=== PATIENT | male | born 1960 | race Caucasian/White ===

== ENCOUNTER 2020-04-02 08:47 | Day surgery (SDC) | payer MEDICARE, MEDICAID, SELFPAY ==
[2020-04-02] VITALS (12 sets, daily range): BP systolic 111–153; BP diastolic 54–90; PULSE 56–70; RESP 16–18; TEMP 36.4; O2SAT 94–100; BMI 32.1
--- NOTE | 2020-04-02 | IR_ITS ---
APPROVED REPORT Patient Location: Inpatient Outpatient System Dispatcher: IKER Mart RT (R) PROCEDURES Left heart catheterization Left ventriculogram Selective coronary angiogram Drug-eluting stent deployment to the proximal mid dominant right coronary INDICATION Coronary artery disease, Abnormal Myoview Informed consent was obtained prior to the procedure. COMPLICATIONS none Estimated Blood Loss: less than 10 mls TECHNIQUE One percent lidocaine used to anesthetize the right anterior aspect of the wrist. The right radial artery was accessed via the Seldinger technique. A 6 Japanese sheath was placed in the right radial artery. 2.5 mg of verapamil, 800 mcg of nitroglycerin, 1mg Lidocaine and 5000 U Heparin were given through the arterial sheath. The trap catheter was also used to perform left heart catheterization, left ventriculogram and selective coronary angiogram. At the end of the diagnostic angiogram therapeutic heparin was administered giving a therapeutic ACT. And I Trisha right guide catheter was used to intubate the right coronary artery and a Choice PT extra-support wire was placed distally. A 4 mm x 38 mm resolute alanna stent was deployed at 20 sugey reducing the critical stenosis to 0%. HU II flow was present before the procedure with HU-3 flow at the end of the procedure. At the end the procedure the apparatus was removed the sheath was removed good hemostasis was achieved using TR banding patient was transferred to the postop holding area stable condition ANGIOGRAPHIC RESULTS The left main artery Normal The left anterior descending artery Is proximally normal followed by mid vessel 40% stenosis followed by a stent which is widely patent with minimal in-stent restenosis. First diagonal artery is a large vessel and widely patent The circumflex artery Is a nondominant vessel giving rise to a large obtuse marginal artery which has a stent in the proximal to mid segment which is widely patent with minimal in-stent restenosis The right coronary artery Is a large dominant vessel with proximal 50% stenosis followed by mid vessel complex 90% stenosis. HU II flow was present The ALONZO ventriculogram reveals Normal 65% The left ventricular end-diastolic pressure 10 mmHg IMPRESSION Critical dominant right coronary stenosis Successful stenting the proximal to mid right coronary is moderate and critical disease reduced to 0% with one drug-eluting stent Normal ejection fraction Normal left ventricular end-diastolic pressure PLAN 1. Dual antiplatelet therapy 2. LDL less than 55 3. Risk factor modification 4. Cardiac rehabilitation 5. Avoidance of all tobacco products Electronically signed by : Karson Iglesias, 04/02/2020 12:15:36
--- NOTE | 2020-04-02 09:29 | CA_ITS ---
APPROVED REPORT EXAM: Comprehensive 2D, Doppler, and color-flow Echocardiogram Can Bander Operator: Nancy Holliday RT(R) Ht: 5 ft 5 in Wt: 192lbs BSA: 1.94 BP: 139/86 mmHg Indications: CP, Abn GXT, CAD, HTN, FARIAS, hyperlipidemia 2D Dimensions LVOT 2.21 cm (M/F) 1.5-2.5 M-Mode Dimensions RVDd 2.62 cm (0.9-2.6) LVDd 4.59 cm (3.5-5.7) LVDs 3.49 cm (3.5-5.7) IVSd 1.18 cm (0.6-1.1) PWd 1.06 cm (0.6-1.1) EF (Teich) 47.80% FS 24.00% EDV (Teich) 96.80 mL ESV (Teich) 50.50 mL LV Diastology E/A Ratio 1.11 Mitral Valve MV A Velocity 64.00 (40-130 cm/s) Left Ventricle Left atrium is mildly enlarged, left ventricle is normal size, mild concentric left ventricular hypertrophy, visually estimated ejection fraction 55% with no regional wall motion abnormality. Diastolic parameters are inconclusive. Right Ventricle Right atrium and right ventricular normal size and contractility. Aortic Valve Aortic valve is thickened and calcified without aortic stenosis or aortic insufficiency. Mitral Valve Mitral valve is minimally thickened, there is no mitral stenosis, there is mild mitral regurgitation. Tricuspid Valve Tricuspid valve grossly normal, there is mild tricuspid regurgitation. Pulmonic Valve Pulmonic valve is poorly visualized. Great Vessels Aortic root is normal size. Pericardium No significant pericardial effusion noted Conclusion 1. Mildly enlarged left atrium, normal left ventricular size, mild concentric left ventricular hypertrophy, visually estimated ejection fraction 55% with no regional wall motion abnormality, endocardial surfaces are poorly visualized. 2. Thickened and calcified aortic valve without aortic stenosis aortic insufficiency. 3. Mild mitral and tricuspid regurgitation. 4. No significant pericardial effusion noted. Electronically signed by : Yinka Hardwick, 04/03/2020 14:21:04
[2020-04-02 09:44] LABS: Basophils # 0.1 K/mm3 (0-0.2); Basophils % 1.3 % (0.1-2.0); Eosinophils # 0.2 K/mm3 (0.0-0.4); Eosinophils % 1.7 % (0.1-12.0); Hematocrit 44.5 % (42.0-52.0); Hemoglobin 15.4 g/dL (14.1-18.0); Lymphocytes # 2.9 K/mm3 (0.7-4.5); Lymphocytes % 34.5 % (10-50); Mean Corpuscular HGB Conc 34.7 g/dL (31.8-35.4); Mean Corpuscular Volume 89.4 fl (80-94); Mean Platelet Volume 7.6 fl (7.4-10.4); Monocytes # 0.8 K/mm3 (0.1-1.0); Monocytes % 9.5 % (1.7-9.3); Neutrophils # 4.4 K/mm3 (1.8-7.8); Platelet Count 183 K/mm3 (142-424); Red Blood Count 4.98 M/mm3 (4.60-6.20); Red Cell Distribution Width 13.3 % (11.5-17.5); White Blood Count 8.4 K/mm3 (4.8-10.8)
[2020-04-02 09:53] LABS: Chloride 106 mmol/L (98-107); Potassium 4.1 mmoL/L (3.5-5.1); Sodium 141 mmol/L (136-145)
[2020-04-02 09:56] LABS: Anion Gap 15.1 mEq/L (5-15); Blood Urea Nitrogen 12 mg/dl (9-20); Carbon Dioxide 24 mmol/L (22.0-30.0); Creatinine Clearance Estimated 96 mL/min (50-200); Estimated Glomerular Filt Rate 115 ml/min (>60); GFR (African American) 139 ML/MIN (>60)
[2020-04-02 09:57] LABS: Calcium 9.5 mg/dl (8.4-10.2); Glucose 102 mg/dl (74-100)
[2020-04-02 10:15] LABS: Coronavirus 19 IgG Antibody Negative (Negative); Coronavirus 19 IgM Antibody Negative (Negative)
[2020-04-02 12:45] LABS: CATHL Activated Clotting Time > 400 SEC (74-125)
--- NOTE | 2020-04-02 14:47 | HMH.PHACLD ---
Ed Washington has received discharge medication counseling on the following medications: PATIENT IS CURRENTLY TAKING THE FOLLOWING MEDICATIONS: PLAVIX 75 MG DAILY ASPIRIN 81 MG DAILY PRAVASTATIN 40 MG HS MD ADDING BISOPROLOL 5 MG DAILY AFTER CATH.
== END 2020-04-02 15:22 | disposition home or self-care (01) ==
LOC: CATHLAB 08:49
PROVIDERS: PCP Family Medicine; Visit Provider Internal Medicine
DX: E78.5 Hyperlipidemia, unspecified (principal); I10 Essential (primary) hypertension; I25.118 Atherosclerotic heart disease of native coronary artery with other forms of angina pectoris; Z95.5 Presence of coronary angioplasty implant and graft; I25.2 Old myocardial infarction; T82.855A Stenosis of coronary artery stent, initial encounter; Z79.82 Long term (current) use of aspirin; Z79.899 Other long term (current) drug therapy; R94.39 Abnormal result of other cardiovascular function study
CPT/HCPCS: 80048; 85025; 85347; 86328; 92928; 93306; 93458; 99152; C1725; C1760; C1769; C1876; C9600; J1644; Q9967

== ENCOUNTER → 2020-04-08 14:33 | Outpatient (CLI) | payer MEDICARE, MEDICAID, SELFPAY ==
--- NOTE | 2020-04-08 | CA_ITS ---
APPROVED REPORT Filter Bed Placer: Svetlana Alejandre, BALANCE ENGINEER Findings Right upper extremity negative for pseudoaneurysm. Conclusion Right upper extremity negative for pseudoaneurysm. Electronically signed by : Franco De La Cruz MD 04/09/2020 18:32:17
[2020-04-08 14:57] LABS: Basophils # 0.1 K/mm3 (0-0.2); Basophils % 1.2 % (0.1-2.0); Eosinophils # 0.1 K/mm3 (0.0-0.4); Eosinophils % 1.4 % (0.1-12.0); Hematocrit 43.4 % (42.0-52.0); Hemoglobin 15.1 g/dL (14.1-18.0); Lymphocytes # 2.4 K/mm3 (0.7-4.5); Lymphocytes % 28.6 % (10-50); Mean Corpuscular HGB Conc 34.9 g/dL (31.8-35.4); Mean Corpuscular Hemoglobin 30.8 pg (27.0-31.2); Mean Corpuscular Volume 88.1 fl (80-94); Mean Platelet Volume 8.2 fl (7.4-10.4); Monocytes # 0.6 K/mm3 (0.1-1.0); Monocytes % 7.6 % (1.7-9.3); Neutrophils # 5.2 K/mm3 (1.8-7.8); Neutrophils % 61.3 % (37.0-80.0); Platelet Count 222 K/mm3 (142-424); Red Blood Count 4.92 M/mm3 (4.60-6.20); Red Cell Distribution Width 13.1 % (11.5-17.5); White Blood Count 8.5 K/mm3 (4.8-10.8)
[2020-04-08 16:30] LABS: Chloride 105 mmol/L (98-107); Potassium 4.7 mmoL/L (3.5-5.1); Sodium 141 mmol/L (136-145)
[2020-04-08 16:33] LABS: Anion Gap 14.7 mEq/L (5-15); Blood Urea Nitrogen 15 mg/dl (9-20); Calcium 9.6 mg/dl (8.4-10.2); Carbon Dioxide 26 mmol/L (22.0-30.0); Estimated Glomerular Filt Rate 115 ml/min (>60); GFR (African American) 139 ML/MIN (>60); Glucose 87 mg/dl (74-100)
== END ==
PROVIDERS: Visit Provider Nurse Practitioner Family
DX: E78.2 Mixed hyperlipidemia (principal); I10 Essential (primary) hypertension; I25.118 Atherosclerotic heart disease of native coronary artery with other forms of angina pectoris; I25.2 Old myocardial infarction; M25.531 Pain in right wrist
CPT/HCPCS: 36415; 80048; 85025; 93931

== ENCOUNTER 2020-06-01 12:33 | Observation (INO) | payer MEDICARE, MEDICAID, SELFPAY ==
[2020-06-01] VITALS (9 sets, daily range): BP systolic 112–141; BP diastolic 50–83; PULSE 53–79; RESP 16–21; TEMP 36.6–37; O2SAT 92–98; BMI 33.3; BMI 32.7
[2020-06-01 12:51] LABS: Basophils # 0.1 K/mm3 (0-0.2); Eosinophils % 0.2 % (0.1-12.0); Hematocrit 45.2 % (42.0-52.0); Hemoglobin 15.8 g/dL (14.1-18.0); Lymphocytes # 1.9 K/mm3 (0.7-4.5); Lymphocytes % 19.3 % (10-50); Mean Corpuscular HGB Conc 34.9 g/dL (31.8-35.4); Mean Corpuscular Hemoglobin 31.9 pg (27.0-31.2); Mean Corpuscular Volume 91.2 fl (80-94); Mean Platelet Volume 8.2 fl (7.4-10.4); Monocytes # 0.5 K/mm3 (0.1-1.0); Monocytes % 5.5 % (1.7-9.3); Neutrophils # 7.2 K/mm3 (1.8-7.8); Platelet Count 235 K/mm3 (142-424); Red Blood Count 4.95 M/mm3 (4.60-6.20); Red Cell Distribution Width 13.6 % (11.5-17.5); White Blood Count 9.8 K/mm3 (4.8-10.8)
[2020-06-01 12:54] LABS: Chloride 103 mmol/L (98-107); Potassium 4.7 mmoL/L (3.5-5.1); Sodium 140 mmol/L (136-145)
[2020-06-01 12:56] LABS: Amylase 252 U/L (30-110); Blood Urea Nitrogen 20 mg/dl (9-20); Creatinine Clearance Estimated 100 mL/min (50-200); Estimated Glomerular Filt Rate 98 ml/min (>60); GFR (African American) 119 ML/MIN (>60)
[2020-06-01 12:57] LABS: Alanine Aminotransferase 21 U/L (12-78); Albumin Level 4.7 g/dl (3.5-5.0); Albumin/Globulin Ratio 1.4 (1.1-1.8); Alkaline Phosphatase 120 U/L (38-126); Anion Gap 12.7 mEq/L (5-15); Aspartate Amino Transferase 40 U/L (17-59); Bilirubin,Total 0.5 mg/dl (0.2-1.3); Calcium 9.9 mg/dl (8.4-10.2); Carbon Dioxide 29 mmol/L (22.0-30.0); Globulin 3.4 g/dL (1.3-3.2); Glucose 158 mg/dl (74-100); Lipase 1821 U/L (23-300); Total Protein,Serum 8.1 g/dl (6.3-8.2)
[2020-06-01 13:10] LABS: Troponin I < 0.01 ng/ml (0.00-0.034)
[2020-06-01 13:16] LABS: Coronavirus 19 IgG Antibody Negative (Negative); Coronavirus 19 IgM Antibody Negative (Negative)
--- NOTE | 2020-06-01 13:16 | HMH.EDGENADL ---
ED Disposition Clinical Impression: Pancreatitis Qualifiers: Chronicity: acute Disposition: Admitted As Inpatient Condition on Discharge: Good - Critical Care Critical Care Time: No Attestation: On 06/01/20, the high probability of a clinically significant, sudden or life threatening deterioration of the following system(s) required my full and direct attention, intervention and personal management. The time I documented below is in addition to time spent performing reported procedures but includes the following listed in this critical care notation. Medical Decision Making - Keith Inquiry Pt receiving controlled substance: No Vital Signs: 06/01/20 12:33 06/01/20 13:14 06/01/20 13:34 Temperature 97.9 F Temperature Source Temporal Artery Scan Pulse Rate [Right] 70 65 59 L Respiratory Rate 17 Blood Pressure [Right Arm] 141/81 H 125/75 119/73 Blood Pressure Mean [Right Arm] 101 91 88 Blood Pressure Source [Right Arm] Automatic Cuff Automatic Cuff Blood Pressure Position [Right Arm] Sitting Sitting 02 Sat by Pulse Oximetry 98 97 97 Oxygen Delivery Method Room Air - Lab Data Lab Results 06/01/20 12:36: WBC 9.8, RBC 4.95, Hgb 15.8, Hct 45.2, MCV 91.2, MCH 31.9 H, MCHC 34.9, RDW 13.6, Plt Count 235, MPV 8.2, Neut % (Auto) 74.0, Lymph % (Auto) 19.3, [place] % (Auto) 5.5, Eos % (Auto) 0.2, Baso % (Auto) 1.0, Neut # (Auto) 7.2, Lymph # (Auto) 1.9, [place] # (Auto) 0.5, Eos # (Auto) 0.0, Baso # (Auto) 0.1 06/01/20 12:36: Sodium 140, Potassium 4.7, Chloride 103, Carbon Dioxide 29, Anion Gap 12.7, BUN 20, Creatinine 0.80, Estimated Creat Clear 100, Estimated GFR 98, Est GFR ( Amer) 119, Glucose 158 H, Calcium 9.9, Total Bilirubin 0.5, AST 40, ALT 21, Alkaline Phosphatase 120, Total Protein 8.1, Albumin 4.7, Globulin 3.4 H, Albumin/Globulin Ratio 1.4, Amylase 252 H 06/01/20 12:36: Troponin I < 0.01, Lipase 1821 H 06/01/20 12:36: SARS-CoV-2 IgG Ab (Rapid) Negative, SARS-CoV-2 IgM Ab (Rapid) Negative Result diagrams: 06/01/20 12:36 06/01/20 12:36 Orders (Tests/Meds): ED MEDICATIONS Generic Name Dose Route Start Last Admin Trade Name Freq PRN Reason Stop Dose Admin Sodium Chloride 1,000 mls @ 999 mls/hr 06/01/20 12:45 06/01/20 12:51 Sod Chlor 0.9% 1000ml Bag IV 06/01/20 13:45 999 mls/hr .Q1H1M JOHNATHAN Administration Discontinued Medications Generic Name Dose Route Start Last Admin Trade Name Freq PRN Reason Stop Dose Admin Promethazine HCl 12.5 mg 06/01/20 12:41 06/01/20 12:49 Promethazine Hcl 25mg/Ml 1ml Vial IM 06/01/20 12:42 Not Given ONCE ONE Promethazine HCl 25 mg 06/01/20 12:41 06/01/20 12:50 Promethazine Hcl 25mg/Ml 1ml Vial IV 06/01/20 12:42 25 mg ONCE ONE Administration Sodium Chloride 25 ml 06/01/20 12:41 06/01/20 12:51 Sodium Chloride 0.9% 25ml Bag IV 06/01/20 12:42 25 ml ONCE ONE Administration Sodium Chloride 25 ml 06/01/20 12:41 06/01/20 12:49 Sodium Chloride 0.9% 25ml Bag IV 06/01/20 12:42 Not Given ONCE ONE ORDERS Category Date Time Status CT abdomen pelvis w con Stat Cat Scan 06/01/20 12:42 Stop Req Troponin I Q3H Lab 06/01/20 15:45 Ordered Troponin I Q3H Lab 06/01/20 18:45 Ordered Urinalysis and Microscopic Stat Lab 06/01/20 12:44 Ordered Medical Decision Narrative: The patient is a 59 year old male with a history of pancreatitis who presents with N/V. Patient arrives awake and alert, hemodynamically stable, actively vomiting. Abdomen is benign. He states this feels like his previous pancreatitis. Patient was given zofran en route without improvement. Labs including CBC, CMP, lipase, amylase were obtained which showed elevated lipase and amylase. He was given 1L LR bolus and 25 mg phenergan IV without improvement. Spoke with Dr. Bob who will admit for further evaluation and treatment. General Adult HPI - General Chief complaint: Nausea/Vomiting/Diarrhea Stated complaint: NV Time Seen by Provider:
--- NOTE | 2020-06-01 13:36 | PC.NURSE ---
Dr Lee speaking with Dr Bob at this time.
--- NOTE | 2020-06-01 13:36 | PC.NURSE ---
speaking with Dr Bob
--- NOTE | 2020-06-01 14:14 | PC.NURSE ---
Called 2nd floor for report and stated there was an outpt in his room and would be another hour before he could be transported and it would be another hour
--- NOTE | 2020-06-01 14:41 | ECG_ITS ---
APPROVED REPORT Exam: Resting ECG HR:54 bpm ECG Measurements Heart Rate 54 AXES WI 146 P 35 QRSd 88 QRS 9 QT 446 T 19 QTc 422 Conclusion Sinus bradycardia with sinus arrhythmia Otherwise normal ECG Electronically signed by : Oh Ireland, 06/03/2020 14:48:19
--- NOTE | 2020-06-02 | MR_ITS ---
PROCEDURE: MR ABDOMEN WO CON CLINICAL INDICATION: RECURRENT PANCREATITIS Nausea vomiting and abdominal pain COMPARISON: No exams were available for comparison TECHNIQUE: Routine multiplanar multi echo sequences are performed without gadolinium enhancement. FINDINGS: There are no pertinent previous exams available for comparison. Patient was scheduled for an MRI and MRCP however, the patient was unable to perform the MRCP images. Those can be a re-attempted if the patient feels that he can lie for the exam. Patient was complaining of extreme nausea and vomiting. The liver has an unremarkable appearance. Gallbladder is not visualized and presumed surgically absent. The spleen and adrenal glands have an unremarkable appearance. Unremarkable appearing pancreas. The pancreatic duct does not appear dilated. The common bile duct has an unremarkable appearance. No obvious common duct stones are evident. No obvious pancreatic mass. The kidneys have an unremarkable appearance. IMPRESSION: Prior cholecystectomy. Otherwise negative MRI of the abdomen Dictated by: Franco De La Cruz MD 06/02/2020 14:02 Franco De La Cruz MD in OV 06/02/2020 14:02
[2020-06-02 04:00] VITALS: BP 122/71; PULSE 74; RESP 21; TEMP 36.9; O2SAT 94
[2020-06-02 05:10] VITALS: BMI 32.5
--- NOTE | 2020-06-02 05:22 | PC.NURSE ---
Pt is A&Ox4. Lung sounds clear t/o. Bowel sounds active in all 4 quads. Abdomen is soft and tender. 20g LAC PIV remains patent and is infusing LR @ 125 mL/hr. Pt has had no c/o pain this shift. Pt continues to ambulate self to the restroom with satisfactory balance and steady gait. No other acute changes or complaints at this time. Will continue to monitor.
--- NOTE | 2020-06-02 07:31 | P.CONPHA_ITS ---
[facility] VTE Monitoring - Patient Demographics Admission date: 06/02/20 Report Date: 06/02/20 Time: 07:31 Allergies/Adverse Reactions: Patient Allergies isosorbide [From Imdur] Allergy (Mild, Verified 05/06/20 13:11) codeine [CODEINE] Allergy (Unknown, Verified 05/06/20 13:11) lisinopril [LISINOPRIL] Allergy (Unknown, Verified 05/06/20 13:11) Penicillins [PENICILLINS] Allergy (Unknown, Verified 05/06/20 13:11) Height: 1.65 m Weight: 88.451 kg Patient Problems: Current Active Problems Pancreatitis (Acute) - VTE Risk Labs: VTE Related Lab Results Hgb 15.8 g/dL (14.1-18.0) 06/01/20 12:36 Hct 45.2 % (42.0-52.0) 06/01/20 12:36 Plt Count 235 K/mm3 (142-424) 06/01/20 12:36 BUN 20 mg/dl (9-20) 06/01/20 12:36 Creatinine 0.80 mg/dl (0.66-1.25) 06/01/20 12:36 Estimated Creat Clear 100 mL/min (50-200) 06/01/20 12:36 Was VTE Risk Assessment Performed: Yes VTE Score: 2 VTE Risk Level: Very Low Risk Clinical Trial Participant: No - Prophylaxis VTE Prophylaxis Ordered?: Yes Types of VTE Prophylaxis: TEDS Knee High
--- NOTE | 2020-06-02 07:37 | HMH.PHAINT ---
home medication reconciliation completed using list from [facility]
[2020-06-02 07:45] VITALS: BP 116/62; PULSE 60; RESP 16; TEMP 36.8; O2SAT 97
[2020-06-02 09:33] LABS: Chloride 106 mmol/L (98-107)
[2020-06-02 09:34] LABS: Potassium 3.7 mmoL/L (3.5-5.1); Sodium 139 mmol/L (136-145)
[2020-06-02 09:36] LABS: Alanine Aminotransferase 19 U/L (12-78); Alkaline Phosphatase 89 U/L (38-126); Amylase 75 U/L (30-110); Anion Gap 7.7 mEq/L (5-15); Aspartate Amino Transferase 40 U/L (17-59); Bilirubin,Total 0.5 mg/dl (0.2-1.3); Blood Urea Nitrogen 15 mg/dl (9-20); Carbon Dioxide 29 mmol/L (22.0-30.0); Creatinine Clearance Estimated 97 mL/min (50-200); Estimated Glomerular Filt Rate 98 ml/min (>60); GFR (African American) 119 ML/MIN (>60)
[2020-06-02 09:37] LABS: Albumin Level 3.8 g/dl (3.5-5.0); Albumin/Globulin Ratio 1.3 (1.1-1.8); Globulin 2.9 g/dL (1.3-3.2); Glucose 116 mg/dl (74-100); Total Protein,Serum 6.7 g/dl (6.3-8.2)
[2020-06-02 10:43] LABS: Lipase 60 U/L (23-300)
[2020-06-02 11:35] LABS: Calcium 8.9 mg/dl (8.4-10.2)
--- NOTE | 2020-06-02 12:47 | HMH.HP ---
*Admission Date: 06/02/20 *Chief complaint: abdominal pain and vomiting *History of present illness: per ER narrative The patient is a 59 year old male with a history of pancreatitis who presents to the ED with nausea and vomiting. Patient states it started last night. He has not been able to tolerate PO. He states this feels like his previous bouts of pancreatitis. No other complaints. History is limited as patient is actively vomiting. The patient is a 59 year old male with a history of pancreatitis who presents with N/V. Patient arrives awake and alert, hemodynamically stable, actively vomiting. Abdomen is benign. He states this feels like his previous pancreatitis. Patient was given zofran en route without improvement. Labs including CBC, CMP, lipase, amylase were obtained which showed elevated lipase and amylase. He was given 1L LR bolus and 25 mg phenergan IV without improvement. Spoke with Dr. Bob who will admit for further evaluation and treatment. Pt is s/p gb No etoh CAD s/p multiple stent deployments Has had bouts of pancreatitis before by his account [facility] History Medical History: Reports:: Coronary Artery Disease, Hyperlipidemia, Hypertension, Myocardial Infarction Denies:: Cancer, Diabetes Mellitus Type 1, Diabetes Mellitus Type 2, MRSA *Have you ever received a pneumonia vaccine?: No *Have you received a flu vaccine this season?: No Other Medical History: Reports: Arthritis Other Surgeries: Yes: Cardiac Catheterization, Cholecystectomy, Coronary Stent Amputation: No Fractures: No - *Social History Last grade of school completed: 9th or 10th Smoking Status: Former smoker Alcohol Intake: never Substance Use Type: denies use *Occupational Status:: disabled Housing: house Household Members: spouse *Travel in the last 8 weeks: None Family Hx:: Cancer, Diabetes Review of Systems - Constitutional Reports lack of energy - Eyes Denies change in vision - ENT Denies abnormal hearing - *Cardiovascular Denies chest pain, Denies chest pain at rest, Denies shortness of breath - *Respiratory Denies chest congestion - *Gastrointestinal Reports abdominal pain, Reports bloating, Reports cramping, Reports nausea - *Genitourinary Denies difficulty urinating - *Musculoskeletal Denies abnormal walking - Integumentary/Breasts Denies yellowing of the skin - *Neurologic Denies abnormal speech, Denies localized weakness - Psychiatric Reports change in appetite - Endocrine Denies increased hunger - Hematologic/Lymphatic Denies easy bleeding - Allergic/Immunologic Denies hives Meds Home Medications Medication Instructions Recorded Confirmed Type ascorbic acid (vitamin C) 500 mg 500 mg PO DAILY 03/25/20 06/01/20 History capsule aspirin 81 mg tablet,delayed 81 mg PO DAILY 03/25/20 06/01/20 History release clopidogrel 75 mg tablet 75 mg PO DAILY tab 03/25/20 06/01/20 History losartan 50 mg tablet 50 mg PO DAILY 03/25/20 06/01/20 History multivitamin 1 tab PO DAILY 03/25/20 06/01/20 History pravastatin 40 mg tablet 40 mg PO HS tab 03/25/20 06/02/20 History bisoprolol fumarate 5 mg tablet 5 mg PO DAILY tab 05/06/20 06/01/20 History Amlodipine Besylate [Amlodipine 5 mg PO DAILY 06/01/20 06/01/20 History 5mg tab] Loratadine [Claritin] 10 mg PO DAILY 06/01/20 06/01/20 History Ranolazine [Ranolazine ER] 500 mg PO BID 06/01/20 06/01/20 History Esomeprazole Magnesium 20 mg PO DAILY 06/02/20 06/02/20 History Ibuprofen [Ibuprofen 600mg 600 mg PO TID PRN 06/02/20 06/02/20 History Tablet] Allergies Allergy/AdvReac Type Severity Reaction Status Date / Time isosorbide [From Imdur] Allergy Mild Verified 05/06/20 13:11 codeine [CODEINE] Allergy Unknown Verified 05/06/20 13:11 lisinopril [LISINOPRIL] Allergy Unknown Verified 05/06/20 13:11 Penicillins [PENICILLINS] Allergy Unknown Verified 05/06/20 13:11 Exam Vital signs and Labs for Last 24 Hours: Temp Pulse Resp
--- NOTE | 2020-06-02 14:01 | HMH.CONS ---
*Admission Date: 06/02/20 *Reason for consult:: Pancreatitis *History of present illness: This is a 59-year-old male patient who was admitted through the ER with nausea vomiting abdominal pain found to have acute pancreatitis. Upon admission he had an amylase of 252 and a lipase of 1821. They have normalized this morning. His liver enzymes were essentially normal with a bilirubin of 0.5, AST of 40, ALT of 21 and alk phos of 120. Patient reports that he has had acute pancreatitis about 15 times over the years. Reports that he stopped drinking alcohol and stopped smoking in 2011 when he had an AK. He does report he smokes marijuana occasionally now but does no other drugs. He is status post cholecystectomy but has never had problems with stones or blockage being a cause of pancreatitis previously. He reports they have never diagnosed exactly why he has acute pancreatitis. He denies nay knowledge of chronic pancreatitis but has some generalized abdominal pain on most days. With multiple bags of IV fluids and some pain medicine the patient has had improvement in his symptoms. He is mildly tender to palpation across his lower abdomen but no [place] or [place] sign, no pain in the upper part of his abdomen or in his back. His nausea and vomiting has improved as well. [facility] History I have reviewed the patient's past medical history: Yes Medical History: Reports:: Coronary Artery Disease, Hyperlipidemia, Hypertension, Myocardial Infarction Denies:: Cancer, Diabetes Mellitus Type 1, Diabetes Mellitus Type 2, MRSA *Have you ever received a pneumonia vaccine?: No *Have you received a flu vaccine this season?: No Other Medical History: Reports: Arthritis Other Surgeries: Yes: Cardiac Catheterization, Cholecystectomy, Coronary Stent Amputation: No Fractures: No - *Social History Last grade of school completed: 9th or 10th Smoking Status: Former smoker Alcohol Intake: never Substance Use Type: denies use *Occupational Status:: disabled Housing: house Household Members: spouse *Travel in the last 8 weeks: None Family Hx:: Cancer, Diabetes Review of Systems - Constitutional Denies anorexia, Denies fever(s), Denies weakness - Eyes Denies blurry vision, Denies loss of vision - ENT Denies abnormal hearing, Denies dizziness, Denies hoarseness, Denies sore throat - *Cardiovascular Denies chest pain, Denies shortness of breath - *Respiratory Denies chest congestion, Denies cough, Denies shortness of breath - *Gastrointestinal Reports abdominal pain, Reports nausea, Reports vomiting, Denies belching, Denies bloating, Denies change in bowel habits, Denies coffee ground vomit, Denies heartburn, Denies difficulty swallowing, Denies heartburn, Denies vomiting blood, Denies bright, red blood in stools, Denies pain with swallowing - *Musculoskeletal Denies abnormal walking, Denies joint pain, Denies muscle weakness, Denies numbness, Denies tingling - Integumentary/Breasts Denies change in skin color, Denies changing lesions, Denies yellowing of the skin - *Neurologic Denies abnormal walking, Denies abnormal hearing, Denies abnormal speech, Denies localized weakness, Denies tingling/numbness/burning sensations, Denies seizure-like activity - Hematologic/Lymphatic Denies easy bleeding, Denies easy bruising Meds Home Medications Medication Instructions Recorded Confirmed Type ascorbic acid (vitamin C) 500 mg 500 mg PO DAILY 03/25/20 06/01/20 History capsule aspirin 81 mg tablet,delayed 81 mg PO DAILY 03/25/20 06/01/20 History release clopidogrel 75 mg tablet 75 mg PO DAILY tab 03/25/20 06/01/20 History losartan 50 mg tablet 50 mg PO DAILY 03/25/20 06/01/20 History multivitamin 1 tab PO DAILY 03/25/20 06/01/20 History pravastatin 40 mg tablet 40 mg PO HS tab 03/25/20 06/02/20 History bisoprolol fumarate 5 mg tablet 5 mg PO DAILY tab 05/06/20 06/01/20 History Amlodipine Besylate [Amlodipine 5 mg PO DAILY 06/01/20 06/01/20 History
[2020-06-02 16:00] VITALS: BP 133/80; PULSE 60; RESP 18; TEMP 36.8; O2SAT 96
--- NOTE | 2020-06-02 18:25 | PC.NURSE ---
Pt alert and oriented and oriented and able to make needs known. RR even and unlabored. Has complained of pain in abd, sides and back. Have medicated per mar with prn pain med. Lungs cta, s1,s2. Have given prn phenegran x1 this shift r/t nausea. Pt states it has helped and has had no further c/o's. Radiology stated that they got what they could for images and Dr De La Cruz would read what he had, this nurse offered to give prn nausea med and allow more images to be done but, radiology stated not at that time. Remains safe. CB in reach and VSS. Mx continues.
--- NOTE | 2020-06-02 19:21 | PC.NURSE ---
report given to edilia
[2020-06-02 20:00] VITALS: BP 133/75; PULSE 57; RESP 16; TEMP 36.8; O2SAT 97
--- NOTE | 2020-06-03 03:55 | PC.NURSE ---
Pt is alert and oriented x4. Pt noted restless for most of this shift thus far. No acute changes noted from previous shift. C/o abdominal pain and back pain, rating at most an 8/10 on pain scale. Administered Morphine x2 thus far for pain relief. Upon reassessment pt noted to be resting with eyes closed. No further complaints. Bilateral lungs noted clear t/o upon auscultation. Tolerated RA well with no SOA. RR noted even and unlabored. Abdomen noted tender to touch and soft upon palpation in all 4 quads. Amb independently in room, tolerates well. Remains NPO this shift. Refused shower this AM. No edema noted. Refused TEDS. VSS. Remains safe. Call light within reach. Will continue to monitor.
[2020-06-03 04:00] VITALS: BP 138/85; PULSE 63; RESP 16; TEMP 36.7; O2SAT 94
[2020-06-03 05:32] VITALS: BMI 32.1
[2020-06-03 07:06] LABS: Basophils # 0.1 K/mm3 (0-0.2); Basophils % 0.7 % (0.1-2.0); Eosinophils % 0.3 % (0.1-12.0); Hematocrit 41.4 % (42.0-52.0); Hemoglobin 13.8 g/dL (14.1-18.0); Lymphocytes % 26.9 % (10-50); Mean Corpuscular HGB Conc 33.4 g/dL (31.8-35.4); Mean Corpuscular Hemoglobin 30.2 pg (27.0-31.2); Mean Corpuscular Volume 90.6 fl (80-94); Mean Platelet Volume 7.6 fl (7.4-10.4); Monocytes # 0.9 K/mm3 (0.1-1.0); Monocytes % 7.6 % (1.7-9.3); Neutrophils # 7.3 K/mm3 (1.8-7.8); Neutrophils % 64.4 % (37.0-80.0); Platelet Count 198 K/mm3 (142-424); Red Blood Count 4.57 M/mm3 (4.60-6.20); Red Cell Distribution Width 13.5 % (11.5-17.5); White Blood Count 11.3 K/mm3 (4.8-10.8)
[2020-06-03 07:08] LABS: Chloride 106 mmol/L (98-107); Potassium 3.7 mmoL/L (3.5-5.1); Sodium 140 mmol/L (136-145)
[2020-06-03 07:10] LABS: Blood Urea Nitrogen 16 mg/dl (9-20); Creatinine Clearance Estimated 96 mL/min (50-200); Estimated Glomerular Filt Rate 98 ml/min (>60); GFR (African American) 119 ML/MIN (>60)
[2020-06-03 07:11] LABS: Alanine Aminotransferase 24 U/L (12-78); Albumin Level 3.7 g/dl (3.5-5.0); Albumin/Globulin Ratio 1.3 (1.1-1.8); Alkaline Phosphatase 83 U/L (38-126); Anion Gap 7.7 mEq/L (5-15); Aspartate Amino Transferase 43 U/L (17-59); Bilirubin,Total 0.7 mg/dl (0.2-1.3); Calcium 8.7 mg/dl (8.4-10.2); Carbon Dioxide 30 mmol/L (22.0-30.0); Chol/HDL Ratio 6.4 (1-3.5); Cholesterol 174 mg/dl (140-200); Globulin 2.9 g/dL (1.3-3.2); Glucose 95 mg/dl (74-100); HDL Cholesterol 27 mg/dl (40-60); Lipase 47 U/L (23-300); Total Protein,Serum 6.6 g/dl (6.3-8.2); Triglycerides 223 mg/dl (30-150); VLDL Cholesterol 45 mg/dL (0-40)
[2020-06-03 07:21] LABS: Direct LDL Cholesterol 103.55 mg/dL (100-129)
[2020-06-03 07:50] VITALS: BP 139/70; PULSE 68; RESP 18; TEMP 36.7; O2SAT 97
[2020-06-03 15:32] VITALS: BP 149/84; PULSE 65; RESP 16; TEMP 37.1; O2SAT 96
--- NOTE | 2020-06-03 17:05 | ECG_ITS ---
APPROVED REPORT Exam: Resting ECG HR:53 bpm ECG Measurements Heart Rate 53 AXES TX 136 P 53 QRSd 90 QRS -17 QT 470 T -2 QTc 441 Conclusion Sinus bradycardia with premature atrial complexes with aberrant conduction Otherwise normal ECG Electronically signed by : Oh Ireland, 06/04/2020 06:10:38
--- NOTE | 2020-06-03 17:20 | PC.NURSE ---
PATIENT A&O X4, LUNGS: DIMINSHED, PULSES EQUAL. PATIENT COMPLAINED OF CHEST PAIN DURING 1700 ADL CHECK. THIS RN NOTIFIED RT FOR EKG STAT. THIS RN HAD ED MD READ RESULTS, NORMAL EKG REPORTED. THIS RN NOTIFIED DR. DREW, NO NEW ORDERS. PATIENT HAS VOICED CONCERNS OVER BEING AT HOME WITHOUT HEATING. THIS RN OFFERED FOR PATIENT'S SPOUSE TO SLEEP IN HIS ROOM WITH HIM. PATIENT STATED, NO I HAVE MY BABIES DOGS , THAT NEED TO BE TAKEN CARE OF. NO OTHER CONCERNS AT THIS TIME.
--- NOTE | 2020-06-03 19:05 | PC.NURSE ---
report given to edilia
[2020-06-03 20:00] VITALS: BP 142/75; PULSE 59; RESP 19; TEMP 36.9; O2SAT 97
--- NOTE | 2020-06-03 20:05 | HMH.ACPN2 ---
Internal Medicine - PN: Subj *Date: 06/03/20 *Time: 09:15 Interval history: 59-year-old male patient lying in bed resting quietly, awakens to verbal stimuli. He reports he had an uneventful night no more nausea or vomiting. 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 We will wait and see what GI referral recommends. Exam Vital signs and Labs for Last 24 Hours: Temp Pulse Resp BP Pulse Ox 98.7 F 65 16 149/84 H 96 06/03/20 15:32 06/03/20 15:32 06/03/20 15:32 06/03/20 15:32 06/03/20 15:32 Laboratory Results - last 24 hr 06/03/20 06:30: Triglycerides 223 H, Cholesterol 174, LDL Cholesterol Direct 103.55, VLDL Cholesterol 45 H, HDL Cholesterol 27 L, Cholesterol/HDL Ratio 6.4 H 06/03/20 06:30: WBC 11.3 H, RBC 4.57 L, Hgb 13.8 L, Hct 41.4 L, MCV 90.6, MCH 30.2, MCHC 33.4, RDW 13.5, Plt Count 198, MPV 7.6, Neut % (Auto) 64.4, Lymph % (Auto) 26.9, [facility] % (Auto) 7.6, Eos % (Auto) 0.3, Baso % (Auto) 0.7, Neut # (Auto) 7.3, Lymph # (Auto) 3.0, [facility] # (Auto) 0.9, Eos # (Auto) 0.0, Baso # (Auto) 0.1 06/03/20 06:30: Sodium 140, Potassium 3.7, Chloride 106, Carbon Dioxide 30, Anion Gap 7.7, BUN 16, Creatinine 0.80, Estimated Creat Clear 96, Estimated GFR 98, Est GFR ( Amer) 119, Glucose 95, Calcium 8.7, Total Bilirubin 0.7, AST 43, ALT 24 D, Alkaline Phosphatase 83, Total Protein 6.6, Albumin 3.7, Globulin 2.9, Albumin/Globulin Ratio 1.3, Lipase 47 I & O for Last 24 hours: Intake & Output 06/01/20 06/01/20 06/02/20 06/03/20 00:59 23:59 23:59 23:59 Intake Total 3275 / 3275 2045 / 2045 Output Total 400 / 400 300 / 300 Balance 2875 / 2875 1746 / 1746 Weight 195 lb 193 lb 4 oz - Constitutional no acute distress - *Routine HEENT Exam Head: Present: normocephalic, scalp tenderness ENT: Present: mucous membranes moist, sinus tenderness - *Routine Neck Exam Present: trachea midline. Absent: JVD, tracheal deviation - *Routine Respiratory Exam Present: CTA bilaterally. Absent: accessory muscle use - *Routine Cardiovascular Exam Present: RRR - *Routine Abdominal Exam Present: soft, normoactive bowel sounds, tenderness. Absent: firm - *Routine Extremities Exam Present: full ROM, pulses intact. Absent: calf tenderness, extremity cold to touch - *Routine Skin Exam Present: intact, warm. Absent: jaundice - *Routine Neurological Exam Present: alert, oriented X3. Absent: altered mental status - Routine Psychiatric Exam Present: normal affect, normal thought process. Absent: homicidal ideation, visual hallucinations Assessment and Plan (1) Pancreatitis Status: Acute Qualifiers: Chronicity: acute Category: Medical Code(s): K85.90 - Acute pancreatitis without necrosis or infection, unspecified (2) CAD (coronary artery disease) Status: Chronic Qualifiers: Coronary Disease-Associated Artery/Lesion type: [place] artery [place] vs. transplanted heart: [place] heart Associated angina: without angina Qualified Code(s): I25.10 - Atherosclerotic heart disease of [place] coronary artery without angina pectoris Category: Medical Code(s): I25.10 - Atherosclerotic heart disease of [place] coronary artery without angina pectoris (3) HTN (hypertension) Status: Chronic Qualifiers: Hypertension type: essential hypertension Qualified Code(s): I10 - Essential (primary) hypertension Category: Medical Code(s): I10 - Essential (primary) hypertension (4) History of GA (myocardial infarction) Status: Chronic Category: Medical Code(s): I25.2 - Old myocardial infarction - Assessment and plan all Dx Assessment and Plan for all problems:: Rounded with Dr. Abbasi, all orders per Dr. Roque: 1. Awaiting GI recommendations
[2020-06-04 04:00] VITALS: BP 129/80; PULSE 57; RESP 20; TEMP 36.8; O2SAT 96
--- NOTE | 2020-06-04 04:37 | PC.NURSE ---
Pt has slept intermittently this shift. His only complaint has been severe back pain, which has been alleviated with morphine. Morphine administered twice thus far with good effectiveness. Denies soa/nausea. Abdomen remains nontender. Lung sounds clear.
[2020-06-04 05:02] VITALS: BMI 32.1
[2020-06-04 07:06] LABS: Chloride 104 mmol/L (98-107)
[2020-06-04 07:07] LABS: Potassium 3.9 mmoL/L (3.5-5.1); Sodium 140 mmol/L (136-145)
[2020-06-04 07:08] LABS: Basophils # 0.1 K/mm3 (0-0.2); Basophils % 0.8 % (0.1-2.0); Eosinophils % 0.4 % (0.1-12.0); Hemoglobin 13.4 g/dL (14.1-18.0); Lymphocytes % 22.9 % (10-50); Mean Corpuscular HGB Conc 33.4 g/dL (31.8-35.4); Mean Corpuscular Hemoglobin 30.4 pg (27.0-31.2); Mean Platelet Volume 7.5 fl (7.4-10.4); Monocytes # 0.8 K/mm3 (0.1-1.0); Monocytes % 9.1 % (1.7-9.3); Neutrophils # 5.7 K/mm3 (1.8-7.8); Neutrophils % 66.8 % (37.0-80.0); Platelet Count 174 K/mm3 (142-424); Red Cell Distribution Width 12.6 % (11.5-17.5); White Blood Count 8.5 K/mm3 (4.8-10.8)
[2020-06-04 07:09] LABS: Amylase 72 U/L (30-110)
[2020-06-04 07:10] LABS: Anion Gap 9.9 mEq/L (5-15); Blood Urea Nitrogen 15 mg/dl (9-20); Calcium 8.9 mg/dl (8.4-10.2); Carbon Dioxide 30 mmol/L (22.0-30.0); Creatinine Clearance Estimated 96 mL/min (50-200); Estimated Glomerular Filt Rate 98 ml/min (>60); GFR (African American) 119 ML/MIN (>60); Glucose 102 mg/dl (74-100); Lipase 120 U/L (23-300)
[2020-06-04 07:58] VITALS: BP 150/88; PULSE 58; RESP 20; TEMP 36.8; O2SAT 97
[2020-06-04 08:00] VITALS: PULSE 58; RESP 20; O2SAT 97
--- NOTE | 2020-06-04 13:46 | HMH.DCSUM ---
General - General Admission date:: 06/01/20 Discharge date: 06/04/20 HPI HPI: per ER narrative The patient is a 59 year old male with a history of pancreatitis who presents to the ED with nausea and vomiting. Patient states it started last night. He has not been able to tolerate PO. He states this feels like his previous bouts of pancreatitis. No other complaints. History is limited as patient is actively vomiting. The patient is a 59 year old male with a history of pancreatitis who presents with N/V. Patient arrives awake and alert, hemodynamically stable, actively vomiting. Abdomen is benign. He states this feels like his previous pancreatitis. Patient was given zofran en route without improvement. Labs including CBC, CMP, lipase, amylase were obtained which showed elevated lipase and amylase. He was given 1L LR bolus and 25 mg phenergan IV without improvement. Spoke with Dr. Bob who will admit for further evaluation and treatment. Pt is s/p gb No etoh CAD s/p multiple stent deployments Has had bouts of pancreatitis before by his account Hospital Course Hospital Course: per ER narrative The patient is a 59 year old male with a history of pancreatitis who presents to the ED with nausea and vomiting. Patient states it started last night. He has not been able to tolerate PO. He states this feels like his previous bouts of pancreatitis. No other complaints. History is limited as patient is actively vomiting. The patient is a 59 year old male with a history of pancreatitis who presents with N/V. Patient arrives awake and alert, hemodynamically stable, actively vomiting. Abdomen is benign. He states this feels like his previous pancreatitis. Patient was given zofran en route without improvement. Labs including CBC, CMP, lipase, amylase were obtained which showed elevated lipase and amylase. He was given 1L LR bolus and 25 mg phenergan IV without improvement. Spoke with Dr. Bob who will admit for further evaluation and treatment. Pt is s/p gb No etoh CAD s/p multiple stent deployments Has had bouts of pancreatitis before by his account Lab work in emergency department revealed an amylase of 352, lipase of 1821 AST and ALT were within normal. Today on day of discharge amylase is down to 72 lipase is reduced to 120, and AST and ALT are still within normal (Per Dr. Bob). GI has seen and REC: This gentleman has had recurrent pancreatitis he reports 15 times. He denies known etiology but he was drinking alcohol and smoking up until 2011 when he had an [facility]. He reports only marijuana use now. Upon arrival his amylase and lipase were 252 and 1821 respectively but have normalized this morning. He has essentially normal liver enzymes and has never had a blockage contributing to pancreatitis previously. He reports he does not believe he has elevated cholesterol or triglycerides. He is not a diabetic. He has had improvement in both his abdominal pain and his nausea and vomiting today. We will check an MRCP with concerns for chronic pancreatitis. If there is evidence of chronicity, he may benefit from a PPI and daily pancreatic enzymes and/or ERCP depending on findings from MRCP. Recommend continued smoking and alcohol cessation. He is welcome to follow-up with us in the outpatient clinic after discharge if MRCP is found to be abnorma 06/02/20 Abd MRI: FINDINGS: There are no pertinent previous exams available for comparison. Patient was scheduled for an MRI and MRCP however, the patient was unable to perform the MRCP images. Those can be a re-attempted if the patient feels that he can lie for the exam. Patient was complaining of extreme nausea and vomiting. The liver has an unremarkable appearance. Gallbladder is not visualized and presumed surgically absent. The spleen and adrenal glands have an unremarkable appearance. Unremarkable appearing pancreas. The pancreatic duct does not appear dilated. The common b
== END 2020-06-04 15:15 | disposition home or self-care (01) ==
LOC: ER 12:48 → 2ND 13:47
PROVIDERS: Nurse Practitioner Family; Admitting Provider Family Medicine; Emergency Provider Emergency Medicine; PCP Family Medicine; Visit Provider Family Medicine
DX: K85.90 Acute pancreatitis without necrosis or infection, unspecified (principal); I25.10 Atherosclerotic heart disease of native coronary artery without angina pectoris; I10 Essential (primary) hypertension; E78.5 Hyperlipidemia, unspecified; I25.2 Old myocardial infarction; Z95.5 Presence of coronary angioplasty implant and graft; Z87.891 Personal history of nicotine dependence; Z88.0 Allergy status to penicillin; Z88.8 Allergy status to other drugs, medicaments and biological substances; Z88.5 Allergy status to narcotic agent; Z79.02 Long term (current) use of antithrombotics/antiplatelets; Z79.899 Other long term (current) drug therapy; Z23 Encounter for immunization
CPT/HCPCS: G0008; G0009; 74181; 80048; 80053; 80061; 82150; 83690; 84484; 85025; 86328; 90686; 90732; 93005; 96365; 96375; 99284; G0378

== ENCOUNTER 2020-10-10 09:25 | Day surgery (SDC) | payer MEDICARE, MEDICAID, SELFPAY ==
[2020-10-10] VITALS (13 sets, daily range): BP systolic 88–152; BP diastolic 49–86; PULSE 46–57; RESP 16–18; TEMP 36.7; O2SAT 90–98; BMI 33.5
--- NOTE | 2020-10-10 | IR_ITS ---
APPROVED REPORT Patient Location: Outpatient Health Management Consultant: IKER Calvert RT (R) PROCEDURES Left heart catheterization Left ventriculogram Selective coronary angiogram INDICATION Known multivessel coronary disease, Typical angina pectoris Informed consent was obtained prior to the procedure. COMPLICATIONS None Estimated Blood Loss: Less than 10 mls TECHNIQUE One percent lidocaine used to anesthetize the right anterior aspect of the wrist. The right radial artery was accessed via the Seldinger technique. A 6 Amharic sheath was placed in the right radial artery. 2.5 mg of verapamil, 800 mcg of nitroglycerin, 1mg Lidocaine and 5000 U Heparin were given through the arterial sheath. The trap catheter was also used to perform left heart catheterization, left ventriculogram and selective coronary angiogram. At the end of the procedure the sheath was removed good hemostasis was achieved using Traclet band, patient was transferred to the postop holding area in stable condition. ANGIOGRAPHIC RESULTS The left main artery Normal The left anterior descending artery Has proximal 10% stenosis and is large caliber. The mid LAD has a tubular 30 to 40% stenosis followed by another calcification or stent. Either the stent or the calcification is still widely patent with minimal 10% stenosis. Distal to the first septal stencil printer and diagonal artery the LAD is a moderate sized vessel. A large 3 mm first diagonal artery has mild proximal 10% stenosis The circumflex artery Is nondominant yet still a large vessel with proximal 20 to 30% concentric stenosis The right coronary artery Is a large dominant vessel with a stent in the proximal through mid segment which is widely patent. Distal to the stent is a 20% transitioning stenosis. The remaining vessel has mild vascular ectasia but is widely patent with mild 10% luminal irregularities. The posterior descending artery has a mid vessel eccentric 20 to 30% stenosis the large posterior lateral branch has mild luminal irregularities The ALONZO ventriculogram reveals Preserved 60% The left ventricular end-diastolic pressure Elevated at 25 mmHg IMPRESSION Coronary disease as described above Preserved ejection fraction Elevated LVEDP which is the likely etiology for patient's angina also combined with endothelial dysfunction which was evident on the first few angiograms with slow HU II flow down the LAD which improved on subsequent injections PLAN 1. Treatment of endothelial dysfunction with nitrates and Ranexa 2. Treat diastolic dysfunction with diuretics 3. Maximize antianginal medication 4. Aggressive risk factor modification 5. Medical management for CAD Electronically signed by : Karson Iglesias, 10/10/2020 10:52:52
[2020-10-10 10:24] LABS: Coronavirus 19 IgG Antibody Negative (Negative); Coronavirus 19 IgM Antibody Negative (Negative)
== END 2020-10-10 13:57 | disposition home or self-care (01) ==
LOC: CATHLAB 09:27
PROVIDERS: PCP Family Medicine; Visit Provider Internal Medicine
DX: I25.118 Atherosclerotic heart disease of native coronary artery with other forms of angina pectoris (principal); I10 Essential (primary) hypertension; E78.5 Hyperlipidemia, unspecified; I25.2 Old myocardial infarction; Z79.899 Other long term (current) drug therapy; Z87.891 Personal history of nicotine dependence; Z79.02 Long term (current) use of antithrombotics/antiplatelets; Z88.0 Allergy status to penicillin; Z88.8 Allergy status to other drugs, medicaments and biological substances
CPT/HCPCS: 86328; 93458; 99152; C1725; C1769; J1644; Q9967

== ENCOUNTER → 2020-12-23 08:40 | Outpatient (CLI) | payer MEDICARE, MEDICAID, SELFPAY | PROVIDERS: PCP Family Medicine; Visit Provider Specialist | DX: G40.909 Epilepsy, unspecified, not intractable, without status epilepticus (principal); G47.52 REM sleep behavior disorder | CPT/HCPCS: 95819 ==

== ENCOUNTER → 2021-09-02 12:17 | Outpatient (CLI) | payer MEDICARE, MEDICAID, SELFPAY | PROVIDERS: PCP Nurse Practitioner Family; Visit Provider Nurse Practitioner Family | DX: R06.00 Dyspnea, unspecified (principal); R00.2 Palpitations; I25.118 Atherosclerotic heart disease of native coronary artery with other forms of angina pectoris; I25.2 Old myocardial infarction | CPT/HCPCS: 93270 ==

== ENCOUNTER → 2021-09-15 06:33 | Outpatient (CLI) | payer MEDICARE, MEDICAID, SELFPAY ==
--- NOTE | 2021-09-15 06:35 | CA_ITS ---
APPROVED REPORT Exam: Exercise Treadmill Technologist: Bess Schulte Ht: 5 ft 5 in Wt: 191 lbs BSA: 1.94 m2 HR: 64 bpm BP: 127/79 mmHg Indications: Chest pain Medical History Medications: Aspirin,,,,, Vitamin C,,,,, Vitamin E,,,,, Vitamin D3,,,,, Losartan,,,,, CloPIdogrel,,,,, Ibuprofen,,,,, LoraTidine,,,,, Esomeprazole,,,,, SpirOnolactone,,,,, Hydroxyzine,,,,, Trazodone,,,,, Stress Test Details Test: Samm HR Resting HR: 65 bpm Max Heart Rate (APMHR): 158.130448 bpm Max HR Achieved: 144 bpm Target HR (85% APMHR): 134.026982 bpm % of APMHR: 91.14 Recovery HR: 71 bpm BP Resting BP: 127.0/79.0 mmHg Max BP: 180.0/77.0 mmHg Recovery BP: 122.0/75.0 mmHg ECG Resting ECG: Normal sinus rhythm, PACs, slow R wave progression Clinical Exercise duration: 08:00 min Highest Stage Achieved: Exercise capacity: 10.1 METs Stress ECG Conclusion Patient exercised 8:00 on Samm Protocol. Test stopped due to shortness of air, fatigue. Symptoms: Mild aching chest pain. Arrhythmias/Ectopy: In recovery, there is an occasional PVC. Also in recovery, there are frequent PACs in bigeminal pattern. ST-T Changes: Allowing for motion artifact, the ST response to exercise is within normal. Conclusion: Normal GXT (except for mild chest pain). Myoview images reported separately. Test Summary REST . . . . . . . Sitting REST . . . . . . . Standing REST 03:08 0.0 0.0 65 . 127/ 79 . . Stage 1 01:00 10.0 1.7 80 . . . . Stage 1 02:00 10.0 1.7 92 . . . . Stage 1 03:00 10.0 1.7 98 . 155/ 75 . . Stage 2 01:00 12.0 2.5 109 . . . . Stage 2 02:00 12.0 2.5 113 . . . . Stage 2 03:00 12.0 2.5 114 . 168/ 80 . . Stage 3 . . . . . . . Myoview Injected Stage 3 01:00 14.0 3.4 125 . . . . Stage 3 02:00 14.0 3.4 136 . . . Stop exercise at 08:00 RECOVERY 01:00 0.0 0.0 121 . . . . RECOVERY . . . . . . . Chest pain RECOVERY 02:00 0.0 0.0 82 . . . . RECOVERY 03:00 0.0 0.0 68 . 180/ 77 . . RECOVERY 04:00 0.0 0.0 68 . 180/ 77 . . RECOVERY 05:00 0.0 0.0 72 . 128/ 70 . . RECOVERY 06:00 0.0 0.0 71 . 122/ 75 . . RECOVERY 06:17 0.0 0.0 71 . 122/ 75 . . Electronically signed by : Yinka Hardwick MD 09/15/2021 19:31:48
--- NOTE | 2021-09-15 06:35 | NM_ITS ---
APPROVED REPORT Exam: Nuclear Stress Test Indication: Chest pain, SOB, Palpitations, CAD, High cholesterol, Family history Patient Location: Outpatient Stress Tech: Bess Schulte MI Tech:Allegra Lim, ARRT, RT (R)(N) Ht: 5 ft 5 in Wt: 188 lbs HR: 64 bpm BP: 127/79 mmHg BSA: 1.93 m2 BMI: 31.2 History: Chest pain, SOB, Palpitations, CAD, High cholesterol, Family history Procedure: Patient exercised on Samm protocol 8:00 minutes and sec, resting heart rate 64 bpm, resting blood pressure 127/79 mmHg, with exercise maximum heart rate achived was 136 bpm which is 86 % of the maximum predicted heart rate and blood pressure was 180/77 mmHg. Test was stopped due to SOA and leg fatigue. Patient has good exercise capacity, achieved 10.1 METs of workload on treadmill, the blood pressure response to exercise was Adequate. Electrocardiogram Resting electrocardiogram shows sinus rhythm, with exercise there is less than 1.[address] segment depression noted from the baseline EKG. The EKG portion of the exercise Myoview is negative for ischemia. Cardiac Stress and Resting SPECT Images: Cardiac Stress and Resting SPECT images were obtained using technetium 99m Myoview 30.8 mCi stress and 10.14 mCi at rest. Gated SPECT for analysis of segmental wall motion and calculation of the ejection fraction also done. Cardiac stress and resting SPECT images show uniform myocardial activity without segmental perfusion abnormality, computer derived ejection fraction is 53% with no regional wall motion abnormality, right ventricle is normal size and contractility. Conclusion: 1. The EKG portion of the exercise Myoview is negative for ischemia, patient has good exercise capacity achieved 10.1 METs of workload on treadmill, the blood pressure response to exercise was adequate, there was no exercise-induced chest discomfort. 2. No scintigraphic evidence of reversible ischemia seen, computer derived ejection fraction is 53% with no regional wall motion abnormality, right ventricle is normal size and contractility 3. Normal exercise Myoview study. Electronically signed by : Yinka Hardwick MD 09/15/2021 19:47:38
--- NOTE | 2021-09-15 09:07 | HMH.ITSHM ---
Current Home Medications as stated by this patient Ed [place] or inside outside sales representative. []VITAMIN E SPIRONOLACTONE TRAZODONE RANOLAZINE MULTIVITAMIN LOSARTAN HYDROXYZINE CLOPIDOGREL VITAMIN D3 ASA VITAMIN C LORATADINE ESOMEPRAZOLE
== END ==
PROVIDERS: PCP Nurse Practitioner Family; Visit Provider Nurse Practitioner Family
DX: R06.00 Dyspnea, unspecified; I25.118 Atherosclerotic heart disease of native coronary artery with other forms of angina pectoris; R00.2 Palpitations; I10 Essential (primary) hypertension; E78.2 Mixed hyperlipidemia; I25.2 Old myocardial infarction
CPT/HCPCS: 78452; 93017; A9502

== ENCOUNTER → 2021-09-22 13:20 | Outpatient (CLI) | payer MEDICARE, MEDICAID, SELFPAY ==
[2021-09-22 14:01] LABS: Chloride 102 mmol/L (98-107); Sodium 135 mmol/L (136-145)
[2021-09-22 14:02] LABS: Potassium 4.4 mmoL/L (3.5-5.1)
[2021-09-22 14:04] LABS: Blood Urea Nitrogen 15 mg/dl (9-20); Estimated Glomerular Filt Rate 86 ml/min (>60); GFR (African American) 103 ML/MIN (>60)
[2021-09-22 14:05] LABS: Anion Gap 12.4 mEq/L (5-15); Basophils # 0.1 K/mm3 (0-0.2); Basophils % 1.2 % (0.1-2.0); Calcium 8.6 mg/dl (8.4-10.2); Carbon Dioxide 25 mmol/L (22.0-30.0); Eosinophils # 0.1 K/mm3 (0.0-0.4); Eosinophils % 0.7 % (0.1-12.0); Glucose 143 mg/dl (74-100); Hematocrit 41.9 % (42.0-52.0); Hemoglobin 14.1 g/dL (14.1-18.0); Lymphocytes # 1.9 K/mm3 (0.7-4.5); Lymphocytes % 22.5 % (10-50); Mean Corpuscular HGB Conc 33.7 g/dL (31.8-35.4); Mean Corpuscular Volume 89.2 fl (80-94); Mean Platelet Volume 7.7 fl (7.4-10.4); Monocytes # 0.6 K/mm3 (0.1-1.0); Monocytes % 7.2 % (1.7-9.3); Neutrophils # 5.7 K/mm3 (1.8-7.8); Neutrophils % 68.4 % (37.0-80.0); Platelet Count 263 K/mm3 (142-424); Red Blood Count 4.69 M/mm3 (4.60-6.20); Red Cell Distribution Width 13.8 % (11.5-17.5); White Blood Count 8.3 K/mm3 (4.8-10.8)
== END ==
PROVIDERS: Visit Provider Physician Assistant
DX: I49.5 Sick sinus syndrome (principal); K85.90 Acute pancreatitis without necrosis or infection, unspecified; Z01.812 Encounter for preprocedural laboratory examination; Z11.52 Encounter for screening for COVID-19
CPT/HCPCS: 36415; 80048; 85025; C9803; U0003; U0005

== ENCOUNTER 2021-09-24 10:17 | Day surgery (SDC) | payer MEDICARE, MEDICAID, SELFPAY ==
[2021-09-24] VITALS (10 sets, daily range): BP systolic 104–127; BP diastolic 56–77; PULSE 67–87; RESP 16–18; TEMP 36.9; O2SAT 93–98; BMI 32.1
--- NOTE | 2021-09-24 | IR_ITS ---
APPROVED REPORT Patient Location: Outpatient Side Sawyer: IKER Miller RT (R) PROCEDURES 1. Pocket formation for Permanent Pacemaker Placement. 2. Placement of an atrial sensing and pacing coil into the right atrial appendage. 3. Placement of a ventricular sensing and pacing coil in the right ventricular apex. 4. Permanent Pacemaker Placement. INDICATION Sick Sinus Syndrome, BradyTachy Syndrome Informed consent was obtained prior to the procedure. COMPLICATIONS NONE Estimated Blood Loss: LESS THAN 10 ML TECHNIQUE 1% Lidocaine with epinephrine used to anesthetized the left anterior aspect of the chest. Scalpel was used to make the initial cutaneous incision while electrocautery was used to dissect down tinto the fascia. The fascia was lifted off the pectoralis muscle and digitally manipulated creating a pocket for the pacemaker. The patient was then placed in Trendelenburg position and the subclavian vein was accessed twice via the Selinger technique, there are two wires in the vein. A 6 Haitian sheath was placed under fluoroscopic guidance into the subclavian vein over one of the wires while keeping the other wire in place within the subclavian vein. The dilator was removed from the sheath. Using fluoroscopic guidance, the ventricular lead was placed into the right ventricular apex, screwed and secured into place. Electronic interrogation proved acceptable thresholds and voltage within the lead. Using 3-0 silk, the ventricular lead was then secured into place. Lead was secured to the facia using the 3-0 silk. Following this, the sheath was pealed away. An additional 6 Haitian fresh sheath and dilator was placed over the existing wire. Using fluoroscopic guidance, the atrial lead was the placed into the right atrial appendage and screwed and secured in place. Electrical interrogation demonstrated acceptable thresholds and voltage number. The atrial lead was then secured into place using 3-0 silk. 1 gram of Ancef was used to flush the pocket. Following the pacemaker generator being secured to the fascia and in place, Monocryl was used to close the subcutaneous layers while yasmine were used to close the cutaneous layer. A pressure dressing was placed and the patient was transferred to the postop holding area in stable condition for postoperative care. INTERROGATION Generator Model number: Level [address], L311 Generator Serial number: [id number] Atrial lead model number: INGEVITY+ 45 CM, 7840 Atrial lead serial number: [id number] P-wave: 3.5mV Impedence: 1.0V@0.4ms Threshold: 550 ohms Right Ventricular lead model number: AXELEVITY+ 52 CM, 7841 Right Ventricular lead serial number: [id number] R-wave: 8.0mV Impedence: 0.4V@0.4ms Threshold: 850 ohms Pacing Parameters: Mode: DDDR Base/Max Track: 60/130 PPM No diaphragmatic stimulation at 10 volts. IMPRESSION 1. Successful pocket formation for Permanent Pacemaker Placement. 2. Successful placement of an atrial sensing and pacing coil into the right atrial appendage. 3. Successful placement of a ventricular sensing and pacing coil in the right ventricular apex. 4. Successful permanent Pacemaker Placement. PLAN 1. Post op wound care, follow up office visit Electronically signed by : Karson Iglesias MD 09/24/2021 14:06:04
--- NOTE | 2021-09-24 13:12 | XR_ITS ---
FINAL REPORT CLINICAL HISTORY: Confirm pacemaker/AID placement FINDINGS: SINGLE VIEW CHEST There is mild cardiomegaly. A pacer is identified. The mediastinum is unremarkable. There is mild scar or atelectasis at the lung bases. There is no pneumothorax. IMPRESSION: Scar atelectasis at the lung bases. Reviewed, Interpreted and Dictated by Bola Singh MD Transcribed by Rachel Webster Authenticated by Bola Singh MD on 09/24/2021 01:57:[address] [facility]
--- NOTE | 2021-09-25 12:33 | P.PN_ITS ---
[facility] Anesthesia Checklist - Patient Identification Patient Identification: Arm Band, Verbal (Name & ) - Structural Data Admitted From: Home Planned Operative Procedure/s: Pacemaker Placement Consent for Planned Operative Procedure(s) Verified: Yes Verified Documents: Surgical Consent - NPO Status Verified Time NPO: 00:00 - Chart Verification Results Verified: CBC, BMP - Airway Assessment C-Spine Mobility Assessed: Yes TMJ Mobility Assessed: Yes Dentition: Edentulous - Neurological Assessment Level of Consciousness: Awake, Alert, Appropriate - Anesthesia Plan Anesthesia Risk discussed: Yes ASA Class: III Anesthesia Type: MAC [facility] History I have reviewed the patient's past medical history: Yes Medical History: Reports:: Chronic Obstructive Pulmonary Disease (COPD), Coronary Artery Disease, Hyperlipidemia, Hypertension, Myocardial Infarction, Palpitations Denies:: Cancer, Diabetes Mellitus Type 1, Diabetes Mellitus Type 2, Internal Pacemaker, MRSA, Seizures *Have you ever received a pneumonia vaccine?: Yes *Have you received a flu vaccine this season?: No Other Medical History: Reports: Arthritis Anesthesia experience/problems:: none Other Surgeries: Yes: Cardiac Catheterization, Cholecystectomy, Coronary Stent, EGD, Hernia Repair. No: Pacemaker Amputation: No Fractures: No - *Social History Last grade of school completed: 9th or 10th Smoking Status: Former smoker Alcohol Intake: never Substance Use Type: denies use *Occupational Status:: unemployed Housing: house Household Members: spouse *Travel in the last 8 weeks: None Family Hx:: Cancer, Diabetes
== END 2021-09-24 15:04 | disposition home or self-care (01) ==
LOC: CATHLAB 10:18
PROVIDERS: PCP Nurse Practitioner Family; Visit Provider Internal Medicine
DX: I49.5 Sick sinus syndrome (principal); Z79.899 Other long term (current) drug therapy; Z79.02 Long term (current) use of antithrombotics/antiplatelets; I25.10 Atherosclerotic heart disease of native coronary artery without angina pectoris; J44.9 Chronic obstructive pulmonary disease, unspecified; I10 Essential (primary) hypertension; Z87.891 Personal history of nicotine dependence
CPT/HCPCS: 33208; 71045; C1785; C1898; J2704

== ENCOUNTER → 2022-01-18 09:51 | Outpatient (CLI) | payer MEDICARE, MEDICAID, SELFPAY ==
[2022-01-18 10:19] LABS: Basophils # 0.1 K/mm3 (0-0.2); Basophils % 1.5 % (0.1-2.0); Eosinophils # 0.1 K/mm3 (0.0-0.4); Eosinophils % 0.8 % (0.1-12.0); Hematocrit 45.5 % (42.0-52.0); Hemoglobin 15.8 g/dL (14.1-18.0); Lymphocytes # 2.4 K/mm3 (0.7-4.5); Lymphocytes % 25.9 % (10-50); Mean Corpuscular HGB Conc 34.7 g/dL (31.8-35.4); Mean Corpuscular Hemoglobin 30.7 pg (27.0-31.2); Mean Corpuscular Volume 88.5 fl (80-94); Monocytes # 0.8 K/mm3 (0.1-1.0); Monocytes % 8.5 % (1.7-9.3); Neutrophils # 5.8 K/mm3 (1.8-7.8); Neutrophils % 63.1 % (37.0-80.0); Platelet Count 225 K/mm3 (142-424); Red Blood Count 5.13 M/mm3 (4.60-6.20); Red Cell Distribution Width 13.1 % (11.5-17.5); White Blood Count 9.2 K/mm3 (4.8-10.8)
[2022-01-18 10:33] LABS: Chloride 104 mmol/L (98-107); Potassium 4.2 mmoL/L (3.5-5.1); Sodium 139 mmol/L (136-145)
[2022-01-18 10:35] LABS: Alanine Aminotransferase 24 U/L (12-78); Aspartate Amino Transferase 37 U/L (17-59); Bilirubin,Unconjugated 0.7 mg/dL (0.0-1.1); Blood Urea Nitrogen 19 mg/dl (9-20); Estimated Glomerular Filt Rate 98 ml/min (>60); GFR (African American) 118 ML/MIN (>60)
[2022-01-18 10:36] LABS: Albumin Level 4.9 g/dl (3.5-5.0); Alkaline Phosphatase 108 U/L (38-126); Anion Gap 14.2 mEq/L (5-15); Bilirubin,Direct 0.1 mg/dl (0.0-0.4); Bilirubin,Indirect 0.7 mg/dL (0.0-0.9); Bilirubin,Total 0.8 mg/dl (0.2-1.3); Calcium 10.2 mg/dl (8.4-10.2); Carbon Dioxide 25 mmol/L (22.0-30.0); Chol/HDL Ratio 7.2 (1-3.5); Cholesterol 202 mg/dl (140-200); Glucose 121 mg/dl (74-100); HDL Cholesterol 28 mg/dl (40-60); Magnesium 1.7 mg/dl (1.6-2.3); Triglycerides 171 mg/dl (30-150); VLDL Cholesterol 34 mg/dL (0-40)
[2022-01-18 10:47] LABS: Direct LDL Cholesterol 134.23 mg/dL (100-129)
[2022-01-18 10:53] LABS: Free T4 (Free Thyroxine) 1.22 ng/dl (0.78-2.19)
[2022-01-18 11:06] LABS: Thyroid Stimulating Hormone 0.07 uIU/mL (0.465-4.68)
== END ==
PROVIDERS: PCP Nurse Practitioner Family; Visit Provider Nurse Practitioner
DX: E78.2 Mixed hyperlipidemia (principal); I10 Essential (primary) hypertension; I25.118 Atherosclerotic heart disease of native coronary artery with other forms of angina pectoris; I25.2 Old myocardial infarction; R00.2 Palpitations; Z95.0 Presence of cardiac pacemaker
CPT/HCPCS: 36415; 80048; 80061; 80076; 83735; 84439; 84443; 85025

== ENCOUNTER → 2022-07-19 09:44 | Outpatient (CLI) | payer MEDICARE, MEDICAID, SELFPAY ==
[2022-07-19 10:50] LABS: Alanine Aminotransferase 16 U/L (12-78); Albumin Level 4.5 g/dl (3.5-5.0); Alkaline Phosphatase 114 U/L (38-126); Aspartate Amino Transferase 27 U/L (17-59); Bilirubin,Direct 0.1 mg/dl (0.0-0.4); Bilirubin,Indirect 0.4 mg/dL (0.0-0.9); Bilirubin,Total 0.5 mg/dl (0.2-1.3); Bilirubin,Unconjugated 0.4 mg/dL (0.0-1.1); Chol/HDL Ratio 3.4 (1-3.5); Cholesterol 98 mg/dl (140-200); HDL Cholesterol 29 mg/dl (40-60); Total Protein,Serum 7.1 g/dl (6.3-8.2); Triglycerides 131 mg/dl (30-150); VLDL Cholesterol 26 mg/dL (0-40)
[2022-07-19 11:07] LABS: Direct LDL Cholesterol 45.88 mg/dL (100-129)
== END ==
PROVIDERS: PCP Physician Assistant; Visit Provider Nurse Practitioner
DX: E78.2 Mixed hyperlipidemia (principal); I10 Essential (primary) hypertension; I25.118 Atherosclerotic heart disease of native coronary artery with other forms of angina pectoris; I49.5 Sick sinus syndrome; R06.00 Dyspnea, unspecified; R55 Syncope and collapse; Z95.0 Presence of cardiac pacemaker
CPT/HCPCS: 36415; 80061; 80076

== ENCOUNTER → 2023-07-27 11:03 | Outpatient (CLI) | payer MEDICARE, SELFPAY ==
[2023-07-27 11:28] LABS: Basophils # 0.1 K/mm3 (0-0.2); Basophils % 1.1 % (0.1-2.0); Eosinophils # 0.2 K/mm3 (0.0-0.4); Eosinophils % 2.5 % (0.1-12.0); Hematocrit 44.7 % (42.0-52.0); Hemoglobin 15.7 g/dL (14.1-18.0); Lymphocytes # 2.6 K/mm3 (0.7-4.5); Lymphocytes % 31.3 % (10-50); Mean Corpuscular HGB Conc 35.2 g/dL (31.8-35.4); Mean Corpuscular Hemoglobin 31.1 pg (27.0-31.2); Mean Corpuscular Volume 88.5 fl (80-94); Mean Platelet Volume 8.2 fl (7.4-10.4); Monocytes # 0.7 K/mm3 (0.1-1.0); Monocytes % 8.6 % (1.7-9.3); Neutrophils # 4.8 K/mm3 (1.8-7.8); Neutrophils % 56.5 % (37.0-80.0); Platelet Count 179 K/mm3 (142-424); Red Blood Count 5.05 M/mm3 (4.60-6.20); Red Cell Distribution Width 12.9 % (11.5-17.5); White Blood Count 8.4 K/mm3 (4.8-10.8)
[2023-07-27 12:06] LABS: Alanine Aminotransferase 51 U/L (12-78); Albumin Level 4.5 g/dl (3.5-5.0); Alkaline Phosphatase 91 U/L (38-126); Anion Gap 10.2 mEq/L (5-15); Aspartate Amino Transferase 44 U/L (17-59); Bilirubin,Direct 0.1 mg/dl (0.0-0.4); Bilirubin,Indirect 0.3 mg/dL (0.0-0.9); Bilirubin,Total 0.4 mg/dl (0.2-1.3); Bilirubin,Unconjugated 0.3 mg/dL (0.0-1.1); Blood Urea Nitrogen 13 mg/dl (9-20); Carbon Dioxide 27 mmol/L (22.0-30.0); Chloride 103 mmol/L (98-107); Chol/HDL Ratio 5.2 (1-3.5); Cholesterol 156 mg/dl (140-200); Estimated Glomerular Filt Rate 75 ml/min (>60); GFR (African American) 91 ML/MIN (>60); Glucose 107 mg/dl (74-100); HDL Cholesterol 30 mg/dl (40-60); Potassium 4.2 mmoL/L (3.5-5.1); Sodium 136 mmol/L (136-145); Total Protein,Serum 7.3 g/dl (6.3-8.2); Triglycerides 365 mg/dl (30-150); VLDL Cholesterol 73 mg/dL (0-40)
[2023-07-27 12:18] LABS: Direct LDL Cholesterol 69.12 mg/dL (100-129)
[2023-07-27 12:22] LABS: Free T4 (Free Thyroxine) 0.76 ng/dl (0.78-2.19)
[2023-07-27 12:35] LABS: Thyroid Stimulating Hormone 0.33 uIU/mL (0.465-4.68)
== END ==
LOC: LAB 11:05
PROVIDERS: PCP Family Medicine; Visit Provider Physician Assistant
DX: E78.5 Hyperlipidemia, unspecified (principal); I10 Essential (primary) hypertension; I25.118 Atherosclerotic heart disease of native coronary artery with other forms of angina pectoris; I49.5 Sick sinus syndrome; Z95.0 Presence of cardiac pacemaker; E11.9 Type 2 diabetes mellitus without complications; R06.00 Dyspnea, unspecified; I11.9 Hypertensive heart disease without heart failure
CPT/HCPCS: 36415; 80048; 80061; 80076; 84439; 84443; 85025

== ENCOUNTER 2024-01-05 20:35 | Emergency (ER) | payer MEDICARE, SELFPAY ==
[2024-01-05 20:35] VITALS: BP 154/84; PULSE 66; RESP 16; TEMP 36.6; O2SAT 95; BMI 32.3
--- NOTE | 2024-01-05 20:56 | ECG_ITS ---
APPROVED REPORT Exam: Resting ECG HR:67 bpm ECG Measurements Heart Rate 67 AXES WV 168 P 63 QRSd 92 QRS -5 QT 403 T 58 QTc 418 Conclusion SINUS RHYTHM POSSIBLE ANTERIOR MYOCARDIAL INFARCTION , OF INDETERMINATE AGE [30 ms Q WAVE IN V3/V4, OR R < 0.2 mV IN V4] ABNORMAL ECG Electronically signed by : PIPER RODRIGES, 01/05/2024 23:44:23
--- NOTE | 2024-01-05 20:58 | XR_ITS ---
PROCEDURE INFORMATION: Exam: XR Chest Exam date and time: 01/05/2024 9:07 PM Age: 63 years old Clinical indication: Pain; Intercostal and left-sided; Additional info: Chest pain rad down L arm TECHNIQUE: Imaging protocol: Radiologic exam of the chest. Views: 2 views. COMPARISON: CR XR CHEST PORTABLE 09/24/2021 1:27 PM FINDINGS: Tubes, catheters and devices: A 2 lead internal cardiac device implanted at the left chest with leads extending to the right heart. Lungs: Left lower lobe calcified nodules unchanged from prior exam measuring up to 8 mm in diameter. No consolidations or pleural effusions. Pleural spaces: See Lungs finding. Heart/Mediastinum: Unremarkable. No cardiomegaly. Bones/joints: Unremarkable. IMPRESSION: No acute findings.
--- NOTE | 2024-01-05 21:04 | ED_ITS ---
Discharge Plan Disposition Patient Disposition: Home, Self-Care Condition: Good Prescriptions Prescriptions: New ondansetron 4 mg tablet,disintegrating 4 mg PO Q8H PRN (Reason: nausea and vomiting) 4 Days Qty: 12 0RF No Action hydroxyzine pamoate 25 mg capsule 25 mg PO TID PRN Patient Comments: TAKE 1 CAPSULE BY MOUTH EVERY 8 HOURS NEEDED clonazepam [Klonopin] 0.5 mg tablet 0.5 mg PO HS Qty: 30 5RF Rx Instructions: administer 30 minutes before bedtime multivitamin Tablet 1 tab PO DAILY ascorbic acid (vitamin C) 500 mg capsule 500 mg PO DAILY cholecalciferol (vitamin D3) 50 mcg (2,000 unit) capsule 50 mcg PO DAILY lacosamide 100 mg tablet 100 mg PO BID esomeprazole magnesium 40 mg capsule,delayed release(DR/EC) 40 mg PO DAILY escitalopram oxalate 20 mg tablet 20 mg PO DAILY losartan 100 mg tablet 100 mg PO DAILY Qty: 90 3RF rosuvastatin [Crestor] 40 mg tablet 40 mg PO DAILY Qty: 90 3RF spironolactone [Aldactone] 25 mg tablet 25 mg PO DAILY Qty: 90 3RF clopidogrel 75 mg tablet 75 mg PO DAILY Qty: 30 5RF loratadine 10 MG capsule 10 mg PO DAILY Referrals Follow up/Referrals: Tonio Houston [Referring] - See instructions Activity Restrictions/Add. Instructions Additional Instructions/Restrictions: You were evaluated in the emergency department today. 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 At this time, it is felt that your symptoms are related to musculoskeletal pain. Your other symptoms are likely caused by a viral infection, as labs and workup are not concerning for bacterial infection such as pneumonia. Please take Tylenol and ibuprofen at home as needed for pain. upfitter your prescription for Zofran and take as needed for nausea or stomach upset. Return to the emergency department for new or worsening symptoms. Clinical Impressions Clinical Impression: Chest wall pain, Acute viral syndrome Instructions Patient Instructions: DI for Atypical Chest Pain, DI for Costochondritis, DI for Acute Pain -- Adult, DI for Viral Syndrome Discharge ED Provider: Mari Gonzalez General Adult HPI General Chief complaint: PAIN Stated complaint: shoulder pain/ bowel movements x4 today Time Seen by Provider: 01/05/24 20:57 History of Present Illness HPI narrative: This patient is a 63-year-old male with a history of CAD, hypertension, hyperlipidemia, degenerative disc disease with chronic back pain, cardiac pacemaker in place, and pancreatitis presenting to the emergency department for evaluation with concern for left chest/left upper quadrant pain that radiates down his left arm and down his left flank. he notes that he has not felt right today, with cough, congestion, headaches, nausea, and frequent bowel movements. He notes that he is having to strain a lot to go to the bathroom because he feels like his stomach is upset. He also notes that he recently mowed as well. He notes that as result of this, he is developed pain on his left side that is worse with movement, coughing, and position changes. He also states that his chest wall feels tender to palpation as well as his upper abdomen. He notes no fevers, vision changes, numbness, tingling, muscle weakness, vomiting, rashes, swelling, urinary symptoms, or other concerns. No recent falls or traumatic injuries noted. Related Data Home Medications Medication Instructions Recorded Confirmed ascorbic acid (vitamin C) 500 mg 500 mg PO DAILY Supplement 03/25/20 07/27/23 capsule multivitamin 1 tab PO DAILY Supplement 03/25/20 07/27/23 loratadine 10 mg capsule 10 mg PO DAILY Allergy symptoms 06/01/20 07/27/23 cholecalciferol (vitamin D3) 50 50 mcg PO DAILY 06/02/21 07/27/23 mcg (2,000 unit) capsule hydroxyzine pamoate 25 mg capsule 25 mg PO TID PRN 10/08/21 07/27/23 lacosamide 100 mg tablet 100 mg PO BID 01/18/22 07/27/23 escitalopram oxalate 20 mg tablet 20 mg PO DAILY 01/24/23 07/27/23 esomeprazole magnesium 40 mg 40 mg PO DAILY 01/24/23 07/27/23 capsule,delayed release Previous Rx's Medication Instructions Recorded clonazepam 0.5 mg tablet (Klonopin) 0.5 mg PO HS #30 tabs 10/08/21 losartan 100 mg tablet 100 mg PO DAILY #90 tabs 10/13/23 rosuvastatin 40 mg tablet (Crestor) 40 mg PO DAILY #90 tabs 10/17/23 spironolactone 25 mg tablet 25 mg PO DAILY #90 tabs 10/24/23 (Aldactone) clopidogrel 75 mg tablet 75 mg PO DAILY Platelet inhibitor 12/29/23 #30 tabs ondansetron 4 mg disintegrating 4 mg PO Q8H PRN nausea and 01/05/24 tablet vomiting 4 days #12 tabs Allergies Allergy/AdvReac Type Severity Reaction Status Date / Time isosorbide [From Imdur] Allergy Mild Verified 07/27/23 10:21 codeine [CODEINE] Allergy Unknown Verified 07/27/23 10:21 lisinopril [LISINOPRIL] Allergy Unknown Verified 07/27/23 10:21 Penicillins [PENICILLINS] Allergy Unknown Verified 07/27/23 10:21 [facility] Disclaimer: The information contained in this section may have been updated after the patient was seen, as this information can be updated by other users. Medical History Near syncope Tachycardia-bradycardia syndrome Dyspnea Chest pain Elevated left ventricular end-diastolic pressure (LVEDP) Social History Smoking Status: Former smoker second hand exposure: No alcohol intake: never substance use type: denies use current occupational status: unemployed Travel in the last 8 weeks: Inside the [place] household members: spouse housing: house current occupational exposures/hazards: No caffeine: Yes ROS Obtained: Yes All systems reviewed & no additional complaints except as documented Physical Exam General General appearance: alert and in no apparent distress Head Head exam: atraumatic and normocephalic Eye Eye exam: Present normal appearance, PERRL and EOMI ENT ENT exam: Present normal exam, normal oropharynx, mucous membranes moist and normal external ear exam Neck Neck exam: Present full ROM, trachea midline and tenderness (Tenderness palpation of the left paraspinal muscles/upper traps. Pain is reproducible with palpation.) Chest Chest inspection: Present symmetric chest wall rise and tenderness (Left chest wall tenderness to palpation. Pain is reproducible with palpation) Respiratory Respiratory exam: Present normal lung sounds bilaterally; Absent respiratory distress, wheezes, stridor or accessory muscle use Cardiovascular Cardiovascular exam: Present regular rate and normal rhythm Abdominal Exam Abdominal exam: Present soft, tenderness (Mild left upper quadrant) and normal bowel sounds; Absent distention, guarding, rebound or rigidity Extremities Exam Extremities exam: Present full ROM, normal capillary refill and other (Pain with range of motion of the left shoulder. Neurovascularly intact with no motor weakness.); Absent tenderness or edema Back Exam Back exam: Present full ROM and tenderness (Cervical and thoracic paraspinal muscle tenderness to palpation with no midline tenderness.) Neurological Exam Neurological exam: Present alert, oriented X3, CN II-XII intact and normal gait; Absent motor sensory deficit Psychiatric Psychiatric exam: Present normal affect and normal mood Skin Skin exam: Present warm and dry Medical Decision Making Medical Records Medical records reviewed: Yes I reviewed the patient's medical records. Keith Inquiry Pt receiving controlled substance: No Vital Signs: 01/05/24 20:35 01/05/24 22:06 01/05/24 22:30 Temperature 97.9 F Temperature Source Oral Pulse Rate 63 63 Pulse Rate [Left] 66 Respiratory Rate 16 Blood Pressure 131/80 143/85 H Blood Pressure [Right Arm] 154/84 H Blood Pressure Mean [Right Arm] 107 02 Sat by Pulse Oximetry 95 97 94 L Oxygen Delivery Method Room Air 01/05/24 23:26 Temperature 97.9 F Temperature Source Oral Pulse Rate 65 Pulse Rate [Left] Respiratory Rate 18 Blood Pressure 133/83 Blood Pressure [Right Arm] Blood Pressure Mean [Right Arm] 02 Sat by Pulse Oximetry Oxygen Delivery Method Room Air Lab Data Lab results reviewed: Yes I reviewed the patient's lab results. Lab Results 01/05/24 21:10: WBC 10.5, RBC 4.67, Hgb 13.8 L, Hct 43.2, MCV 92.5, MCH 29.6, MCHC 32.0, RDW 13.9, Plt Count 211, MPV 8.1, Neut % (Auto) 78.3, Lymph % (Auto) 14.1, [place] % (Auto) 6.3, Eos % (Auto) 0.6, Baso % (Auto) 0.8, Neut # (Auto) 8.2 H, Lymph # (Auto) 1.5, [place] # (Auto) 0.7, Eos # (Auto) 0.1, Baso # (Auto) 0.1, Sodium 138, Potassium 4.4, Chloride 105, Carbon Dioxide 25, Anion Gap 12.4, BUN 14, Creatinine 0.90, Estimated Creat Clear 92, Estimated GFR 85, Est GFR ( Amer) 102, Glucose 132 H, Calcium 9.8, Total Bilirubin 0.4, AST 32, ALT 23, Alkaline Phosphatase 82, Troponin I < 0.01, Total Protein 7.6, Albumin 4.4, Globulin 3.2, Albumin/Globulin Ratio 1.4, Lipase 157 01/05/24 22:00: Urine Color Yellow, Urine Appearance Clear, Urine pH 7.5, Ur Specific [place] 1.010, Urine Protein Negative, Urine Glucose (UA) Negative, Urine Ketones Negative, Urine Blood Negative, Urine Nitrate Negative, Urine Bilirubin Negative, Urine Urobilinogen 0.2, Ur Leukocyte Esterase Negative, Urine WBC 3-5, Ur Squamous Epith Cells Occasional, Urine Bacteria Trace 01/05/24 22:10: SARS-CoV-2 (PCR) Not detected, Influenza A Untype (PCR) Not detected, Influenza Type B (PCR) Not detected 01/05/24 22:43: Troponin I < 0.01 01/05/24 21:10 01/05/24 21:10 Orders (Tests/Meds): ED MEDICATIONS Discontinued Medications Generic Name Dose Route Start Last Admin Trade Name Freq PRN Reason Stop Dose Admin Acetaminophen 1,000 mg 01/05/24 21:03 01/05/24 21:22 Acetaminophen 500mg Tab PO 01/05/24 21:04 1,000 mg ONCE ONE Administration Ketorolac Tromethamine 15 mg 01/05/24 21:03 01/05/24 21:22 Ketorolac 30mg/Ml Vial IV 01/05/24 21:04 15 mg ONCE ONE Administration Methocarbamol 500 mg 01/05/24 21:03 01/05/24 21:21 Methocarbamol 500mg Tablet PO 01/05/24 21:04 500 mg ONCE ONE Administration ORDERS Category Date Time Status CXR 2 view (NOT portable) [XR chest 2V] Stat Exams 01/05/24 20:58 Completed Complete Blood Count Auto Diff Stat Lab 01/05/24 21:10 Completed Comprehensive Metabolic Panel Stat Lab 01/05/24 21:10 Completed Lipase Stat Lab 01/05/24 21:10 Completed Rapid PCR Covid and Flu A/B Stat Lab 01/05/24 22:10 Completed Trop I [Troponin I] Stat Lab 01/05/24 21:10 Completed Troponin I Q3H Lab 01/05/24 22:43 Completed Troponin I Q3H Lab 01/06/24 02:58 Ordered UA [Urinalysis and Microscopic] Stat Lab 01/05/24 22:00 Completed ECG Data Tracing #1: I reviewed this ECG and interpreted as documented below: Normal sinus rhythm with a ventricular rate of [address] changes concerning for ischemia. Normal intervals. ECG initial impression date: 01/05/24 ECG initial impression time: 08:57 Medical Decision Narrative: In summary, this patient is a 63-year-old male presenting to the Emergency Department for evaluation of left-sided pain radiating from his neck down his arm and into his chest and upper abdomen. He notes that it started after mowing, straining to have bowel movements, and coughing, as he has not felt well all day today. Differential diagnoses considered include but are not limited to musculoskeletal pain, costochondritis, cervical radiculopathy, thoracic radiculopathy, ACS, gastroenteritis, pancreatitis, colitis. Ruling out the most morbid conditions drove assessment. It should be noted patient's history includes hypertension, hyperlipidemia, CAD which may or may not at goal therapy. This complicates all aspects of care by increasing patient's risk for morbidity. I reviewed patient's past medical records and noted previous evaluation by cardiology, at which point recent assessment 07/23 was reassuring. On exam, the patient is resting comfortably in bed in no acute distress. His pain is reproducible with range of motion of his left shoulder and palpation of his left shoulder, chest, and upper abdomen. I feel it is likely musculoskeletal in nature, however given his acute illness with nausea, frequent bowel movements, cough, and congestion, as well as his cardiac history, will obtain workup including CBC, CMP, lipase, troponin, urinalysis, chest x-ray, and EKG. No neurologic deficits on exam to suggest CVA or other neurovascular injury as cause of patient's symptoms. EKG obtained is reassuring. Patient was given IV Toradol, oral Tylenol, and oral Robaxin for symptomatic improvement of pain. I independently interpreted x-ray prior to the radiologist read and noted no acute focal consolidation, pneumothorax, or other concern. Please see their read for final interpretation. Labs were obtained that demonstrated negative troponins x 2. Labs otherwise reassuring with no significant leukocytosis, elevation in lipase, or other concerns. On reassessment, patient had great improvement after administration of event as above. I feel he likely has a viral syndrome triggering his cough and GI symptoms, as there is no focal finding on exam to suggest bacterial infection. I feel that this is likely triggering musculoskeletal pain that caused her to present.. At this time, patient was deemed to be appropriate for discharge home with instructions for supportive management, close outpatient follow-up, and very strict return precautions. He was given prescription for Zofran given his nausea. Patient was discharged after all questions were answered. Critical Care Critical Care Time Critical Care Time: No
[2024-01-05 21:17] LABS: Basophils # 0.1 K/mm3 (0-0.2); Basophils % 0.8 % (0.1-2.0); Eosinophils # 0.1 K/mm3 (0.0-0.4); Eosinophils % 0.6 % (0.1-12.0); Hematocrit 43.2 % (42.0-52.0); Hemoglobin 13.8 g/dL (14.1-18.0); Lymphocytes # 1.5 K/mm3 (0.7-4.5); Lymphocytes % 14.1 % (10-50); Mean Corpuscular Hemoglobin 29.6 pg (27.0-31.2); Mean Corpuscular Volume 92.5 fl (80-94); Mean Platelet Volume 8.1 fl (7.4-10.4); Monocytes # 0.7 K/mm3 (0.1-1.0); Monocytes % 6.3 % (1.7-9.3); Neutrophils # 8.2 K/mm3 (1.8-7.8); Neutrophils % 78.3 % (37.0-80.0); Platelet Count 211 K/mm3 (142-424); Red Blood Count 4.67 M/mm3 (4.60-6.20); Red Cell Distribution Width 13.9 % (11.5-17.5); White Blood Count 10.5 K/mm3 (4.8-10.8)
[2024-01-05 21:19] LABS: Chloride 105 mmol/L (98-107)
[2024-01-05 21:20] LABS: Potassium 4.4 mmoL/L (3.5-5.1); Sodium 138 mmol/L (136-145)
[2024-01-05] MEDS: METHOCARBAMOL 500MG TABLET 500 MG PO (21:21)
[2024-01-05 21:22] LABS: Alanine Aminotransferase 23 U/L (12-78); Alkaline Phosphatase 82 U/L (38-126); Aspartate Amino Transferase 32 U/L (17-59); Bilirubin,Total 0.4 mg/dl (0.2-1.3); Blood Urea Nitrogen 14 mg/dl (9-20); Creatinine Clearance Estimated 92 mL/min (50-200); Estimated Glomerular Filt Rate 85 ml/min (>60); GFR (African American) 102 ML/MIN (>60)
[2024-01-05] MEDS: KETOROLAC 30MG/ML VIAL 15 MG IV (21:22)
[2024-01-05] MEDS: ACETAMINOPHEN 500MG TAB 1000 MG PO (21:22)
[2024-01-05 21:23] LABS: Albumin Level 4.4 g/dl (3.5-5.0); Albumin/Globulin Ratio 1.4 (1.1-1.8); Anion Gap 12.4 mEq/L (5-15); Calcium 9.8 mg/dl (8.4-10.2); Carbon Dioxide 25 mmol/L (22.0-30.0); Globulin 3.2 g/dL (1.3-3.2); Glucose 132 mg/dl (74-100); Lipase 157 U/L (23-300); Total Protein,Serum 7.6 g/dl (6.3-8.2)
[2024-01-05 21:35] LABS: Troponin I < 0.01 ng/ml (0.00-0.034)
--- NOTE | 2024-01-05 22:01 | PC.NURSE ---
urine collected and and sent to lab
[2024-01-05 22:02] LABS: Microscopic, Urine URINE MICROSCOPIC (MICROSCOPIC)
[2024-01-05 22:05] LABS: Appearance,Urine CLEAR (Clear); Bilirubin,Urine Negative (Negative); Blood, Urine Negative (Negative); Color,Urine YELLOW (Yellow); Glucose,Urine (UA) Negative (Negative); Ketones,Urine Negative (Negative); Leukocyte Esterase,Urine Negative (Negative); Nitrate,Urine Negative (Negative); PH,Urine 7.5 (5.0-8.5); Protein,Urine Negative (Negative); Urobilinogen,Urine 0.2 EU/dl (0.2)
[2024-01-05 22:06] VITALS: BP 131/80; PULSE 63; O2SAT 97
[2024-01-05 22:12] LABS: Coronavirus 19, PCR Not Detected (NotDetected); Influenza A, PCR Not Detected (NotDetected); Influenza B, PCR Not Detected (NotDetected)
[2024-01-05 22:18] LABS: Bacteria,Urine Trace /lpf; Squamous Epithelial Cell,Urine Occasional #/hpf (0-5)
[2024-01-05 22:30] VITALS: BP 143/85; PULSE 63; O2SAT 94
[2024-01-05 23:13] LABS: Troponin I < 0.01 ng/ml (0.00-0.034)
[2024-01-05 23:26] VITALS: BP 133/83; PULSE 65; RESP 18; TEMP 36.6; O2SAT 97
== END 2024-01-05 23:32 | disposition home or self-care (01) ==
PROVIDERS: Emergency Provider Emergency Medicine; PCP Nurse Practitioner Family
DX: R07.89 Other chest pain (principal); R10.12 Left upper quadrant pain; R05.9 Cough, unspecified; R51.9 Headache, unspecified; R11.0 Nausea; R09.81 Nasal congestion; B34.9 Viral infection, unspecified; Z87.891 Personal history of nicotine dependence
CPT/HCPCS: 71046; 80053; 81001; 83690; 84484; 85025; 87636; 93005; 96374; 99284

== ENCOUNTER 2024-02-08 10:32 | Outpatient (CLI) | payer MEDICARE, MEDICAID, SELFPAY ==
[2024-02-08 11:20] LABS: Basophils # 0.1 K/mm3 (0-0.2); Basophils % 1.8 % (0.1-2.0); Eosinophils # 0.1 K/mm3 (0.0-0.4); Hematocrit 42.1 % (42.0-52.0); Lymphocytes # 2.1 K/mm3 (0.7-4.5); Lymphocytes % 29.6 % (10-50); Mean Corpuscular HGB Conc 33.4 g/dL (31.8-35.4); Mean Corpuscular Hemoglobin 30.8 pg (27.0-31.2); Mean Corpuscular Volume 92.3 fl (80-94); Monocytes # 0.6 K/mm3 (0.1-1.0); Monocytes % 8.1 % (1.7-9.3); Neutrophils # 4.1 K/mm3 (1.8-7.8); Neutrophils % 58.5 % (37.0-80.0); Platelet Count 185 K/mm3 (142-424); Red Blood Count 4.56 M/mm3 (4.60-6.20); Red Cell Distribution Width 13.8 % (11.5-17.5)
[2024-02-08 11:49] LABS: Alanine Aminotransferase 26 U/L (12-78); Alkaline Phosphatase 94 U/L (38-126); Anion Gap 8.5 mEq/L (5-15); Aspartate Amino Transferase 33 U/L (17-59); Bilirubin,Indirect 0.3 mg/dL (0.0-0.9); Bilirubin,Total 0.3 mg/dl (0.2-1.3); Bilirubin,Unconjugated 0.4 mg/dL (0.0-1.1); Blood Urea Nitrogen 10 mg/dl (9-20); Calcium 9.4 mg/dl (8.4-10.2); Carbon Dioxide 29 mmol/L (22.0-30.0); Chloride 108 mmol/L (98-107); Chol/HDL Ratio 4.2 (1-3.5); Cholesterol 143 mg/dl (140-200); Estimated Glomerular Filt Rate 85 ml/min (>60); GFR (African American) 102 ML/MIN (>60); Glucose 94 mg/dl (74-100); HDL Cholesterol 34 mg/dl (40-60); Magnesium 1.7 mg/dl (1.6-2.3); Potassium 4.5 mmoL/L (3.5-5.1); Sodium 141 mmol/L (136-145); Total Protein,Serum 6.7 g/dl (6.3-8.2); Triglycerides 305 mg/dl (30-150); VLDL Cholesterol 61 mg/dL (0-40)
[2024-02-08 12:04] LABS: Free T4 (Free Thyroxine) 0.71 ng/dl (0.78-2.19)
[2024-02-08 12:19] LABS: Thyroid Stimulating Hormone 1.97 uIU/mL (0.465-4.68)
== END 2024-02-08 23:59 | disposition home or self-care (01) ==
LOC: LAB 10:33
PROVIDERS: PCP Nurse Practitioner Family; Visit Provider Nurse Practitioner
DX: R79.89 Other specified abnormal findings of blood chemistry; Z95.0 Presence of cardiac pacemaker; I10 Essential (primary) hypertension; I25.118 Atherosclerotic heart disease of native coronary artery with other forms of angina pectoris; Z87.891 Personal history of nicotine dependence; E78.5 Hyperlipidemia, unspecified
CPT/HCPCS: 36415; 80048; 80061; 80076; 83735; 84439; 84443; 85025